=== PATIENT | female | born 1985 | race American Indian/Alaskan Native ===

== ENCOUNTER 2021-06-03 15:30 | Inpatient (IN) | payer OTHER, SELFPAY ==
[2021-06-03] MEDS ORDERED: SODIUM CHLORIDE 0.9% 1000 ML IV SOLN IV ONE (17:34)
[2021-06-03] MEDS ORDERED: VANCOMYCIN 1,250 MG in SODIUM CHLORIDE 0.9% 500 ML 500 ML IV ONE (17:38)
[2021-06-03] MEDS ORDERED: cefTRIAXone/NS 1 GM/50 ML 1 GM/50 ML BAG IV ONE (17:39)
--- NOTE | 2021-06-03 17:42 | Emergency Department Report ---
HPI - General Chief Complaint: Hyperglycemia Time Seen by Provider: 06/03/21 17:25 - HPI HPI: 35-year-old female with history of DM 2 who is currently on no medications because she is homeless presents complaining of hyperglycemia and pain in her right great toe for the past 2 weeks. Patient states that everything started with pain and swelling of her right great toe approximately 2 weeks ago. She went to the ER at [facility] on May 18 and was prescribed clindamycin for 1 week but she states that the pills were taken away from her and she has not taken them in the last week. She reports that she has had progressive swelling of her right foot and also with separate swelling of her right ankle which started about a week ago. She says other than the pain in her toe and swelling she has no other symptoms. According to the EMS report, the patient's blood glucose was 343. She denies any fever/chills, headache, vision change, abdominal pain, na usea/vomiting, cough, shortness of breath, chest pain, back pain, dysuria, focal weakness, sensory changes other than chronic foot and toe numbness and paresthesias, or any other complaints. ED Past Medical Hx - Past Medical History Previous Medical History?: Yes Hx Diabetes: Yes - Surgical History Past Surgical History?: No - Social History Smoking Status: Never Smoker Substance Use Type: None - Medications Home Medications: Home Medications Medication Instructions Recorded Confirmed Last Taken Type No Known Home Medications [No 06/04/21 06/04/21 Unknown History Reported Home Medications] ED Review of Systems ROS: Stated complaint: DIABETIC W/RT TOE INFECTION Other details as noted in HPI Constitutional: denies: chills, fever Eyes: denies: eye pain, vision change ENT: denies: throat pain, congestion Respiratory: denies: cough, shortness of breath Cardiovascular: denies: chest pain, palpitations Gastrointestinal: denies: abdominal pain, nausea, vomiting Genitourinary: denies: dysuria, frequency Musculoskeletal: other (Right great toe pain, Right foot, ankle, and calf pain). denies: back pain Skin: denies: rash Neurological: numbness (chronic (bilateral soles of feet)). denies: headache, weakness Physical Exam - Physical Exam Vital Signs: Vital Signs 06/03/21 16:16 Temperature 99.0 F Pulse Rate 96 H Respiratory 18 Rate Blood Pressure 129/89 [Right] O2 Sat by Pulse 100 Oximetry Physical Exam: GENERAL: Well developed and well nourished. No acute distress HEAD: Normocephalic. No obvious signs of trauma. ENT: Very dry mucous membranes. EYES: Extraocular movements are intact. Pupils are equal round and reactive to light bilaterally NECK: Supple. Full ROM is intact. Trachea is midline. LUNGS: Nonlabored breathing. Equal chest rise bilaterally. Clear to auscultation bilaterally. CARDIOVASCULAR: Regular rate and rhythm. No murmurs or rubs. VASCULAR: Cap refill < 2 seconds ABDOMEN: Abdomen is soft and nondistended. There is no significant tenderness, guarding or rebound. SKIN: Skin is warm and dry NEURO: Patient is awake, alert, and oriented. 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 No focal deficits. Normal motor and sensory exam throughout with the exception of the bilateral soles which have reduced sensation to light touch. Normal speech. MUSCULOSKELETAL: The great toe of the right foot is extremely swollen and fluctuant with visible fibrinous tissue which extends past the IP joint. There is extensive swelling of the right foot and the 4 other toes with mild overlying erythema. There is a 2+ DP pulse on the right and left. There is no tenderness on palpation of the malleolus or the base of the fifth metatarsal on the right. There is 2+ swelling of the right calf and no swelling on the left. The 4 other toes have normal range of motion. Range of motion of the great toe on the right is very limited. Range of motion at the right ankle is limited secondary to swelling. Otherwise there are no obvious deformities and no significant tenderness elsewhere. BACK/SPINE: No costovertebral angle tenderness. ED Course Vital Signs 06/03/21 16:16 Temperature 99.0 F Pulse Rate 96 H Respiratory 18 Rate Blood Pressure 129/89 [Right] O2 Sat by Pulse 100 Oximetry ED Medical Decision Making - Lab Data Result diagrams: 06/03/21 19:50 06/03/21 17:51 Lab Results 06/03/21 06/03/21 06/03/21 Range/Units 17:51 17:51 17:51 WBC (4.5-11.0) K/mm3 RBC (3.65-5.03) M/mm3 Hgb (10.1-14.3) gm/dl Hct (30.3-42.9) % MCV (79-97) fl MCH (28-32) pg MCHC (30-34) % RDW (13.2-15.2) % Plt Count (140-440) K/mm3 Add Manual Diff Total Counted Seg Neuts % (Manual) (40.0-70.0) % Lymphocytes % (Manual) (13.4-35.0) % Monocytes % (Manual) (0.0-7.3) % Eosinophils % (Manual) (0.0-4.3) % Basophils % (Manual) (0.0-1.8) % Nucleated RBC % Seg Neutrophils # Man (1.8-7.7) K/mm3 Band Neutrophils # K/mm3 Lymphocytes # (Manual) (1.2-5.4) K/mm3 Abs React Lymphs (Man) K/mm3 Monocytes # (Manual) (0.0-0.8) K/mm3 Eosinophils # (Manual) (0.0-0.4) K/mm3 Basophils # (Manual) (0.0-0.1) K/mm3 Metamyelocytes # K/mm3 Myelocytes # K/mm3 Promyelocytes # K/mm3 Blast Cells # K/mm3 WBC Morphology Hypersegmented Neuts Hyposegmented Neuts Hypogranular Neuts Smudge Cells Toxic Granulation Toxic Vacuolation Dohle Bodies Pelger-Huet Anomaly Viri Rods Platelet Estimate Clumped Platelets Plt Clumps, EDTA Large Platelets Giant Platelets Platelet Satelliting Plt Morphology Comment RBC Morphology Dimorphic RBCs Polychromasia Hypochromasia Poikilocytosis Anisocytosis Microcytosis Macrocytosis Spherocytes Pappenheimer Bodies Sickle Cells Target Cells Tear Drop Cells Ovalocytes Helmet Cells Luna-Adak Bodies Stewart Rings [place] Cells Bite Cells Crenated Cell Elliptocytes Acanthocytes (Spur) Rouleaux Hemoglobin C Crystals Schistocytes Malaria parasites Angel Bodies Hem Pathologist Commnt PT (12.2-14.9) Sec. INR (0.87-1.13) APTT (24.2-36.6) Sec. VBG pH (7.320-7.420) Sodium 132 L (137-145) mmol/L Potassium 4.4 (3.6-5.0) mmol/L Chloride 95.1 L (98-107) mmol/L Carbon Dioxide 23 (22-30) mmol/L Anion Gap 18 mmol/L BUN 8 (7-17) mg/dL Creatinine 0.6 (0.6-1.2) mg/dL Estimated GFR > 60 ml/min BUN/Creatinine Ratio 13 % Glucose 231 H (65-100) mg/dL POC Glucose (70-105) mg/dL Osmolality 294 Mosm/kg Lactic Acid 1.10 (0.7-2.0) mmol/L Calcium 9.8 (8.4-10.2) mg/dL Magnesium (1.7-2.3) mg/dL Total Bilirubin < 0.20 (0.1-1.2) mg/dL AST 12 (5-40) units/L ALT 9 (7-56) units/L Alkaline Phosphatase 118 (35-129) units/L Total Protein 8.1 (6.3-8.2) g/dL Albumin 3.8 L (3.9-5) g/dL Albumin/Globulin Ratio 0.9 % Lipase (13-60) units/L HCG, Qual (Negative) Urine Color (Yellow) Urine Turbidity (Clear) Urine pH (5.0-7.0) Ur Specific Davey (1.003-1.030) Urine Protein (Negative) mg/dL Urine Glucose (UA) (Negative) mg/dL Urine Ketones (Negative) mg/dL Urine Blood (Negative) Urine Nitrite (Negative) Urine Bilirubin (Negative) Urine Urobilinogen (<2.0) mg/dL Ur Leukocyte Esterase (Negative) Urine WBC (Auto) (0.0-6.0) /HPF Urine RBC (Auto) (0.0-6.0) /HPF U Epithel Cells (Auto) (0-13.0) /HPF 06/03/21 06/03/21 06/03/21 Range/Units 17:51 17:51 17:51 WBC (4.5-11.0) K/mm3 RBC (3.65-5.03) M/mm3 Hgb (10.1-14.3) gm/dl Hct (30.3-42.9) % MCV (79-97) fl MCH (28-32) pg MCHC (30-34) % RDW (13.2-15.2) % Plt Count (140-440) K/mm3 Add Manual Diff Total Counted Seg Neuts % (Manual) (40.0-70.0) % Lymphocytes % (Manual) (13.4-35.0) % Monocytes % (Manual) (0.0-7.3) % Eosinophils % (Manual) (0.0-4.3) % Basophils % (Manual) (0.0-1.8) % Nucleated RBC % Seg Neutrophils # Man (1.8-7.7) K/mm3 Band Neutrophils # K/mm3 Lymphocytes # (Manual) (1.2-5.4) K/mm3 Abs React Lymphs (Man) K/mm3 Monocytes # (Manual) (0.0-0.8) K/mm3 Eosinophils # (Manual) (0.0-0.4) K/mm3 Basophils # (Manual) (0.0-0.1) K/mm3 Metamyelocytes # K/mm3 Myelocytes # K/mm3 Promyelocytes # K/mm3 Blast Cells # K/mm3 WBC Morphology Hypersegmented Neuts Hyposegmented Neuts Hypogranular Neuts Smudge Cells Toxic Granulation Toxic Vacuolation Dohle Bodies Pelger-Huet Anomaly Viri Rods Platelet Estimate Clumped Platelets Plt Clumps, EDTA Large Platelets Giant Platelets Platelet Satelliting Plt Morphology Comment RBC Morphology Dimorphic RBCs Polychromasia Hypochromasia Poikilocytosis Anisocytosis Microcytosis Macrocytosis Spherocytes Pappenheimer Bodies Sickle Cells Target Cells Tear Drop Cells Ovalocytes Helmet Cells Luna-Adak Bodies Stewart Rings [place] Cells Bite Cells Crenated Cell Elliptocytes Acanthocytes (Spur) Rouleaux Hemoglobin C Crystals Schistocytes Malaria parasites Angel Bodies Hem Pathologist Commnt PT (12.2-14.9) Sec. INR (0.87-1.13) APTT (24.2-36.6) Sec. VBG pH 7.415 (7.320-7.420) Sodium (137-145) mmol/L Potassium (3.6-5.0) mmol/L Chloride (98-107) mmol/L Carbon Dioxide (22-30) mmol/L Anion Gap mmol/L BUN (7-17) mg/dL Creatinine (0.6-1.2) mg/dL Estimated GFR ml/min BUN/Creatinine Ratio % Glucose (65-100) mg/dL POC Glucose (70-105) mg/dL Osmolality Mosm/kg Lactic Acid (0.7-2.0) mmol/L Calcium (8.4-10.2) mg/dL Magnesium 2.00 (1.7-2.3) mg/dL Total Bilirubin (0.1-1.2) mg/dL AST (5-40) units/L ALT (7-56) units/L Alkaline Phosphatase (35-129) units/L Total Protein (6.3-8.2) g/dL Albumin (3.9-5) g/dL Albumin/Globulin Ratio % Lipase 17 (13-60) units/L HCG, Qual Negative (Negative) Urine Color (Yellow) Urine Turbidity (Clear) Urine pH (5.0-7.0) Ur Specific Davey (1.003-1.030) Urine Protein (Negative) mg/dL Urine Glucose (UA) (Negative) mg/dL Urine Ketones (Negative) mg/dL Urine Blood (Negative) Urine Nitrite (Negative) Urine Bilirubin (Negative) Urine Urobilinogen (<2.0) mg/dL Ur Leukocyte Esterase (Negative) Urine WBC (Auto) (0.0-6.0) /HPF Urine RBC (Auto) (0.0-6.0) /HPF U Epithel Cells (Auto) (0-13.0) /HPF 06/03/21 06/03/21 06/03/21 Range/Units 17:51 17:58 19:50 WBC 10.0 (4.5-11.0) K/mm3 RBC 3.45 L (3.65-5.03) M/mm3 Hgb 10.6 (10.1-14.3) gm/dl Hct 31.5 (30.3-42.9) % MCV 91 (79-97) fl MCH 31 (28-32) pg MCHC 34 (30-34) % RDW 15.7 H (13.2-15.2) % Plt Count 356 (140-440) K/mm3 Add Manual Diff Complete Total Counted 100 Seg Neuts % (Manual) 65.0 (40.0-70.0) % Lymphocytes % (Manual) 23.0 (13.4-35.0) % Monocytes % (Manual) 10.0 H (0.0-7.3) % Eosinophils % (Manual) 1.0 (0.0-4.3) % Basophils % (Manual) 1.0 (0.0-1.8) % Nucleated RBC % Not Reportable Seg Neutrophils # Man 6.5 (1.8-7.7) K/mm3 Band Neutrophils # 0.0 K/mm3 Lymphocytes # (Manual) 2.3 (1.2-5.4) K/mm3 Abs React Lymphs (Man) 0.0 K/mm3 Monocytes # (Manual) 1.0 H (0.0-0.8) K/mm3 Eosinophils # (Manual) 0.1 (0.0-0.4) K/mm3 Basophils # (Manual) 0.1 (0.0-0.1) K/mm3 Metamyelocytes # 0.0 K/mm3 Myelocytes # 0.0 K/mm3 Promyelocytes # 0.0 K/mm3 Blast Cells # 0.0 K/mm3 WBC Morphology Not Reportable Hypersegmented Neuts Not Reportable Hyposegmented Neuts Not Reportable Hypogranular Neuts Not Reportable Smudge Cells Not Reportable Toxic Granulation Not Reportable Toxic Vacuolation Not Reportable Dohle Bodies Not Reportable Pelger-Huet Anomaly Not Reportable Viri Rods Not Reportable Platelet Estimate Not Reportable Clumped Platelets Not Reportable Plt Clumps, EDTA Not Reportable Large Platelets Not Reportable Giant Platelets Not Reportable Platelet Satelliting Not Reportable Plt Morphology Comment Not Reportable RBC Morphology Not Reportable Dimorphic RBCs Not Reportable Polychromasia Not Reportable Hypochromasia Few Poikilocytosis Not Reportable Anisocytosis Rare Microcytosis Rare Macrocytosis Not Reportable Spherocytes Not Reportable Pappenheimer Bodies Not Reportable Sickle Cells Not Reportable Target Cells Not Reportable Tear Drop Cells Not Reportable Ovalocytes Not Reportable Helmet Cells Not Reportable Luna-Adak Bodies Not Reportable Stewart Rings Not Reportable [place] Cells Not Reportable Bite Cells Not Reportable Crenated Cell Not Reportable Elliptocytes Not Reportable Acanthocytes (Spur) Not Reportable Rouleaux Not Reportable Hemoglobin C Crystals Not Reportable Schistocytes Not Reportable Malaria parasites Not Reportable Angel Bodies Not Reportable Hem Pathologist Commnt No PT 13.6 (12.2-14.9) Sec. INR 0.98 (0.87-1.13) APTT 32.0 (24.2-36.6) Sec. VBG pH (7.320-7.420) Sodium (137-145) mmol/L Potassium (3.6-5.0) mmol/L Chloride (98-107) mmol/L Carbon Dioxide (22-30) mmol/L Anion Gap mmol/L BUN (7-17) mg/dL Creatinine (0.6-1.2) mg/dL Estimated GFR ml/min BUN/Creatinine Ratio % Glucose (65-100) mg/dL POC Glucose 206 H (70-105) mg/dL Osmolality Mosm/kg Lactic Acid (0.7-2.0) mmol/L Calcium (8.4-10.2) mg/dL Magnesium (1.7-2.3) mg/dL Total Bilirubin (0.1-1.2) mg/dL AST (5-40) units/L ALT (7-56) units/L Alkaline Phosphatase (35-129) units/L Total Protein (6.3-8.2) g/dL Albumin (3.9-5) g/dL Albumin/Globulin Ratio % Lipase (13-60) units/L HCG, Qual (Negative) Urine Color (Yellow) Urine Turbidity (Clear) Urine pH (5.0-7.0) Ur Specific Davey (1.003-1.030) Urine Protein (Negative) mg/dL Urine Glucose (UA) (Negative) mg/dL Urine Ketones (Negative) mg/dL Urine Blood (Negative) Urine Nitrite (Negative) Urine Bilirubin (Negative) Urine Urobilinogen (<2.0) mg/dL Ur Leukocyte Esterase (Negative) Urine WBC (Auto) (0.0-6.0) /HPF Urine RBC (Auto) (0.0-6.0) /HPF U Epithel Cells (Auto) (0-13.0) /HPF 06/03/ Range/Units 21:02 WBC (4.5-11.0) K/mm3 RBC (3.65-5.03) M/mm3 Hgb (10.1-14.3) gm/dl Hct (30.3-42.9) % MCV (79-97) fl MCH (28-32) pg MCHC (30-34) % RDW (13.2-15.2) % Plt Count (140-440) K/mm3 Add Manual Diff Total Counted Seg Neuts % (Manual) (40.0-70.0) % Lymphocytes % (Manual) (13.4-35.0) % Monocytes % (Manual) (0.0-7.3) % Eosinophils % (Manual) (0.0-4.3) % Basophils % (Manual) (0.0-1.8) % Nucleated RBC % Seg Neutrophils # Man (1.8-7.7) K/mm3 Band Neutrophils # K/mm3 Lymphocytes # (Manual) (1.2-5.4) K/mm3 Abs React Lymphs (Man) K/mm3 Monocytes # (Manual) (0.0-0.8) K/mm3 Eosinophils # (Manual) (0.0-0.4) K/mm3 Basophils # (Manual) (0.0-0.1) K/mm3 Metamyelocytes # K/mm3 Myelocytes # K/mm3 Promyelocytes # K/mm3 Blast Cells # K/mm3 WBC Morphology Hypersegmented Neuts Hyposegmented Neuts Hypogranular Neuts Smudge Cells Toxic Granulation Toxic Vacuolation Dohle Bodies Pelger-Huet Anomaly Viri Rods Platelet Estimate Clumped Platelets Plt Clumps, EDTA Large Platelets Giant Platelets Platelet Satelliting Plt Morphology Comment RBC Morphology Dimorphic RBCs Polychromasia Hypochromasia Poikilocytosis Anisocytosis Microcytosis Macrocytosis Spherocytes Pappenheimer Bodies Sickle Cells Target Cells Tear Drop Cells Ovalocytes Helmet Cells Luna-Adak Bodies Stewart Rings Nat Cells Bite Cells Crenated Cell Elliptocytes Acanthocytes (Spur) Rouleaux Hemoglobin C Crystals Schistocytes Malaria parasites Angel Bodies Hem Pathologist Commnt PT (12.2-14.9) Sec. INR (0.87-1.13) APTT (24.2-36.6) Sec. VBG pH (7.320-7.420) Sodium (137-145) mmol/L Potassium (3.6-5.0) mmol/L Chloride (98-107) mmol/L Carbon Dioxide (22-30) mmol/L Anion Gap mmol/L BUN (7-17) mg/dL Creatinine (0.6-1.2) mg/dL Estimated GFR ml/min BUN/Creatinine Ratio % Glucose (65-100) mg/dL POC Glucose (70-105) mg/dL Osmolality Mosm/kg Lactic Acid (0.7-2.0) mmol/L Calcium (8.4-10.2) mg/dL Magnesium (1.7-2.3) mg/dL Total Bilirubin (0.1-1.2) mg/dL AST (5-40) units/L ALT (7-56) units/L Alkaline Phosphatase (35-129) units/L Total Protein (6.3-8.2) g/dL Albumin (3.9-5) g/dL Albumin/Globulin Ratio % Lipase (13-60) units/L HCG, Qual (Negative) Urine Color Yellow (Yellow) Urine Turbidity Clear (Clear) Urine pH 6.0 (5.0-7.0) Ur Specific Davey 1.018 (1.003-1.030) Urine Protein 30 mg/dl (Negative) mg/dL Urine Glucose (UA) >=500 (Negative) mg/dL Urine Ketones Neg (Negative) mg/dL Urine Blood Mod (Negative) Urine Nitrite Neg (Negative) Urine Bilirubin Neg (Negative) Urine Urobilinogen < 2.0 (<2.0) mg/dL Ur Leukocyte Esterase Neg (Negative) Urine WBC (Auto) < 1.0 (0.0-6.0) /HPF Urine RBC (Auto) 6.0 (0.0-6.0) /HPF U Epithel Cells (Auto) < 1.0 (0-13.0) /HPF - Radiology Data CHEST 1 VIEW 06/03/2021 5:45 PM INDICATION / CLINICAL INFORMATION: sepsis. COMPARISON: None available. FINDINGS: SUPPORT DEVICES: None. HEART / MEDIASTINUM: No significant abnormality. LUNGS / PLEURA: No significant pulmonary abnormality. No significant pleural effusion. No pneumothorax. ADDITIONAL FINDINGS: No significant additional findings. IMPRESSION: 1. No acute abnormality of the chest. Signer Name: Rogelio Leroy MD Signed: 06/03/2021 5:05 PM Workstation Name: [id number] Right foot 3 views INDICATION: Gastric FINDINGS: There is bone irregularity within the distal tuft the great toe. Soft tissue gas with ulceration is seen. Findings concerning for infection both the soft tissue and possible early osteomyelitis. Right tibia and fibula 2 views INDICATION: Pain FINDINGS: Tibia and fibula are intact. No acute fracture. No acute findings. Signer Name: Sukhi Jaquan, MD Signed: 06/03/2021 5:07 PM Workstation Name: [id number] Right ankle 3 views INDICATION: Right ankle pain. IMPRESSION: No fracture or subluxation of the right ankle identified. Prominent swelling especially along the medial aspect of the ankle. No subcutaneous gas is appreciated. Signer Name: Jatinder Nolasco MD Signed: 06/03/2021 5:10 PM Workstation Name: [id number] DUPLEX DOPPLER LOWER EXTREMITY VEINS, RIGHT INDICATION / CLINICAL INFORMATION: swelling. TECHNIQUE: Duplex doppler imaging was performed through the veins of the right lower extremity using venous compression and other maneuvers. COMPARISON: None available. FINDINGS: RIGHT COMMON FEMORAL VEIN: Negative. RIG HT FEMORAL VEIN: Negative. RIGHT POPLITEAL VEIN: Negative. RIGHT CALF VEINS: Negative. ADDITIONAL FINDINGS: None. IMPRESSION: 1. No sonographic evidence for DVT in the right lower extremity. Signer Name: Sukhi Partida MD Signed: 06/03/2021 6:59 PM Workstation Name: [id number] - Medical Decision Making 35-year-old female with history of diabetes mellitus who has not been using any diabetes medications due to homelessness presents with a right great toe infection. Her fingerstick blood glucose for EMS was 343. The patient's right great toe is extremely swollen and fluctuant with fibrinous material present extending past the IP joint. There is extensive swelling of the right foot, ankle, and calf. There is a strong DP pulse. Unclear whether the patient's calf swelled up separate from the foot or whether it is an extension of infection from the foot. Patient has been noncompliant with prescribed clindamycin. On initial assessment, she has a low-grade temperature of 99.0. Her heart rate is in the 90s to 100s. She has very dry mucous membranes. Given suspicion for diabetic foot infection, I have activated and ordered the sepsis order set including labs and cultures. We will give 30 mL/kg of IV fluid and broad-spectrum IV vancomycin, Clindamycin, and ceftriaxone. Will obtain plain film x-rays of the right foot, ankle, and tib-fib to evaluate for gas or traumatic injuries. We will also obtain ultrasound of the right lower extremity to assess for evidence of DVT. We will plan to call surgery given the extent of the infection and likely need for OR debridement. X-ray of the foot shows findings concerning for soft tissue infection and early osteomyelitis. At 6:05 PM I spoke with Dr. Lal of general surgery regarding the case. She recommends a vascular surgery consult as an inpatient despite the fact that the patient has 2+ pedal pulses. She states that the patient should be made n.p.o. after midnight in case she is to be brought to the OR for debridement. Labs show no significant leukocytosis or anemia. There are no significant electrolyte abnormalities and kidney function is normal. Her glucose is elevated in the 200s. IV fluids given. Ultrasound shows no evidence of DVT. At 10:01 PM I spoke with Dr. Shankar the on-call hospitalist regarding the case and he accepts patient for admission and will assume care. Critical care attestation.: If time is entered above; I have spent that time in minutes in the direct care of this critically ill patient, excluding procedure time. ED Disposition Clinical Impression: Osteomyelitis of great toe of right foot, Diabetic foot infection Disposition: OP ADMIT IP TO THIS HOSP Is pt being admited?: Yes Condition: Stable
--- NOTE | 2021-06-03 18:10 | XRay Report ---
CHEST 1 VIEW 06/03/2021 5:45 PM INDICATION / CLINICAL INFORMATION: sepsis. COMPARISON: None available. FINDINGS: SUPPORT DEVICES: None. HEART / MEDIASTINUM: No significant abnormality. LUNGS / PLEURA: No significant pulmonary abnormality. No significant pleural effusion. No pneumothora x. ADDITIONAL FINDINGS: No significant additional findings. IMPRESSION: 1. No acute abnormality of the chest. Signer Name: Rogelio Leroy MD Signed: 06/03/2021 6:05 PM Workstation Name: [id number]
--- NOTE | 2021-06-03 18:12 | XRay Report ---
Right foot 3 views INDICATION: Gastric FINDINGS: There is bone irregularity within the distal tuft the great toe. Soft tissue gas with ulcer ation is seen. Findings concerning for infection both the soft tissue and possible early osteomyeliti s. Right tibia and fibula 2 views INDICATION: Pain FINDINGS: Tibia and fibula are intact. No acute fracture. No acute findings. Signer Name: Sukhi Partida MD Signed: 06/03/2021 6:07 PM Workstation Name: [id number]
--- NOTE | 2021-06-03 18:15 | XRay Report ---
Right ankle 3 views INDICATION: Right ankle pain. IMPRESSION: No fracture or subluxation of the right ankle identified. Prominent swelling especially a long the medial aspect of the ankle. No subcutaneous gas is appreciated. Signer Name: Jatinder Nolasco MD Signed: 06/03/2021 6:10 PM Workstation Name: [id number]
[2021-06-03 18:16] LABS: INR 0.98 (0.87-1.13)
[2021-06-03] MEDS ORDERED: VANCOMYCIN 1,500 MG in SODIUM CHLORIDE 0.9% 500 ML 500 ML IV ONE (18:30)
[2021-06-03 20:01] LABS: Hematocrit 31.5 % (30.3-42.9); Hemoglobin 10.6 gm/dl (10.1-14.3); Mean Corpuscular HGB Conc 34 % (30-34); Mean Corpuscular Volume 91 fl (79-97); Platelet Count 356 K/mm3 (140-440); Red Blood Count 3.45 M/mm3 (3.65-5.03); Red Cell Distribution Width 15.7 % (13.2-15.2)
--- NOTE | 2021-06-03 20:03 | Vascular Lab Report ---
DUPLEX DOPPLER LOWER EXTREMITY VEINS, RIGHT INDICATION / CLINICAL INFORMATION: swelling. TECHNIQUE: Duplex doppler imaging was performed through the veins of the right lower extremity using venous comp ression and other maneuvers. COMPARISON: None available. FINDINGS: RIGHT COMMON FEMORAL VEIN: Negative. RIGHT FEMORAL VEIN: Negative. RIGHT POPLITEAL VEIN: Negative. RIGHT CALF VEINS: Negative. ADDITIONAL FINDINGS: None. IMPRESSION: 1. No sonographic evidence for DVT in the right lower extremity. Signer Name: Sukhi Partida MD Signed: 06/03/2021 7:59 PM Workstation Name: [id number]
[2021-06-03] MEDS ORDERED: ACETAMINOPHEN 500 MG TAB PO ONE (20:20)
[2021-06-03 20:26] LABS: Alanine Aminotransferase 9 units/L (7-56); Albumin 3.8 g/dL (3.9-5); Blood Urea Nitrogen 8 mg/dL (7-17); Calcium 9.8 mg/dL (8.4-10.2); Hemolysis Index 14
[2021-06-03 20:30] LABS: BUN/Creatinine Ratio 13
[2021-06-03 21:09] LABS: Anisocytosis RARE; Hypochromasia Few; Total Cells Counted 100
[2021-06-03 21:35] LABS: Bilirubin,Urine NEG (Negative); Blood,Urine MOD (Negative); Color,Urine Yellow (Yellow); Urobilinogen,Urine < 2.0 mg/dL (<2.0); WBC,Urine < 1.0 /HPF (0.0-6.0)
[2021-06-03] MEDS ORDERED: MAGNESIUM HYDROXIDE (MOM) ORAL LIQD UDC PO PRN (22:59)
[2021-06-03] MEDS ORDERED: ACETAMINOPHEN 325 MG TAB PO PRN (22:59)
[2021-06-03] MEDS ORDERED: ONDANSETRON 4 MG/2 ML INJ IV PRN (22:59)
[2021-06-03] MEDS ORDERED: DEXTROSE 50% IN WATER (25GM) 50 ML SYRINGE IV PRN (22:59)
--- NOTE | 2021-06-03 23:07 | History and Physical Report ---
History of Present Illness Date of examination: 06/03/21 Date of admission: 06/03/21 22:10 Chief complaint: Pain in right great toe for 2 weeks History of present illness: 35-year-old -[place] female with known history of diabetes mellitus who is currently homeless and has not been on any medication presenting to the emergency room today complaining of hyperglycemia and pain in the right great toe which has been ongoing for the past 2 weeks. Patient was seen at emergency room in [place] on May 18 and was prescribed some clindamycin for 1 week however patient has not been able to take the antibiotics because she claims it was taken away from her. She has been having progressive swelling and pain in the right foot up to the ankle. She denies any fever or chills, no cough, no chest pain or shortness of breath, no nausea vomiting, no abdominal pain, no hematuria or dysuria. She denies any polydipsia polyuria or increased thirst. According to EMS patient's blood glucose was about 343. Work-up in the emergency room today, chemistry reveals sodium of 132, blood glucose was 231. X-ray of the right great toe shows bony irregularity within the distal tuft of the great toe. Soft tissue gas with ulceration is also seen. Findings were concerning for infection of the soft tissue and possible early osteomyelitis. Patient is being admitted with hyperglycemia and diabetic foot ulcer with possible osteomyelitis. Past History Past Medical History: diabetes Past Surgical History: No surgical history Social history: other (Currently homeless) Family history: no significant family history Medications and Allergies Allergies Allergy/AdvReac Type Severity Reaction Status Date / Time No Known Allergies Allergy Unverified 06/03/21 15:53 Home Medications Medication Instructions Recorded Confirmed Last Taken Type No Known Home Medications [No 06/04/21 06/04/21 Unknown History Reported Home Medications] Active Meds: Active Medications Acetaminophen (Acetaminophen 325 Mg Tab) 650 mg PO Q4H PRN PRN Reason: Pain MILD(1-3)/Fever >100.5/OBRIEN Dextrose (Dextrose 50% In Water (25gm) 50 Ml Syringe) 50 ml IV Q30MIN PRN; Protocol PRN Reason: Hypoglycemia Sodium Chloride (Nacl 0.9% 1000 Ml) 1,000 mls @ 125 mls/hr IV DIRECT SHERRY Insulin Human Lispro (Insulin Lispro 100 Unit/Ml) 0 unit SUB-Q ACHS SHERRY; Protocol Magnesium Hydroxide (Magnesium Hydroxide (Mom) Oral Liqd Udc) 30 ml PO Q4H PRN PRN Reason: Constipation Morphine Sulfate (Morphine 4 Mg/1 Ml Inj) 4 mg IV Q4H PRN PRN Reason: Pain , Severe (7-10) Morphine Sulfate (Morphine 2 Mg/1 Ml Inj) 2 mg IV Q4H PRN PRN Reason: Pain, Moderate (4-6) Ondansetron HCl (Ondansetron 4 Mg/2 Ml Inj) 4 mg IV Q8H PRN PRN Reason: Nausea And Vomiting Sodium Chloride (Sodium Chloride 0.9% 10 Ml Flush Syringe) 10 ml IV BID SHERRY Sodium Chloride (Sodium Chloride 0.9% 10 Ml Flush Syringe) 10 ml IV PRN PRN PRN Reason: LINE FLUSH Review of Systems Constitutional: no fever, no chills Ears, nose, mouth and throat: no nasal congestion, no sore throat Cardiovascular: no chest pain, no palpitations Respiratory: no cough, no shortness of breath Gastrointestinal: no abdominal pain, no nausea, no vomiting, no diarrhea Genitourinary Female: no flank pain, no dysuria, no hematuria Musculoskeletal: no neck pain, no low back pain Integumentary: no rash, no pruritis Neurological: no headaches, no confusion Psychiatric: no anxiety, no depression Endocrine: no polyphagia, no polydipsia, no polyuria, no nocturia Exam - Constitutional Vitals: Temp Pulse Resp BP Pulse Ox 99.9 F H 96 H 16 144/94 100 06/03/21 20:01 06/03/21 20:01 06/03/21 20:48 06/03/21 20:01 06/03/21 20:01 General appearance: Present: no acute distress, well-nourished - EENT Eyes: Present: PERRL, EOM intact. Absent: scleral icterus ENT: hearing intact, clear oral mucosa, dentition normal - Neck Neck: Present: supple, normal ROM - Respiratory Respiratory effort: normal Respiratory: bilateral: CTA - Cardiovascular Rhythm: regular Heart Sounds: Present: S1 & S2. Absent: gallop, systolic murmur, diastolic murmur, rub, click - Extremities Extremities: no ischemia, pulses intact, pulses symmetrical, normal temperature, normal color, Full ROM Extremity abnormal: edema (Dustin right ankle edema), ulceration (Open ulcer on the right great toe, tender to touch, no obvious drainage), tenderness (Tenderness around right great toe) Peripheral Pulses: within normal limits - Abdominal General gastrointestinal: Present: soft, non-tender, non-distended, normal bowel sounds. Absent: mass - Integumentary Integumentary: Present: clear, warm, dry, normal turgor. Absent: rash - Musculoskeletal Musculoskeletal: strength equal bilaterally - Psychiatric Psychiatric: appropriate mood/affect, intact judgment & insight, memory intact, cooperative - Neurologic Neurologic: CNII-XII intact, no focal deficits, moves all extremities Results - Labs CBC & Chem 7: 06/04/21 07:07 06/04/21 07:07 Labs: Abnormal lab results 06/03/21 06/03/21 06/03/21 Range/Units 17:51 17:58 19:50 RBC 3.45 L (3.65-5.03) M/mm3 RDW 15.7 H (13.2-15.2) % Monocytes % (Manual) 10.0 H (0.0-7.3) % Monocytes # (Manual) 1.0 H (0.0-0.8) K/mm3 Sodium 132 L (137-145) mmol/L Chloride 95.1 L (98-107) mmol/L Glucose 231 H (65-100) mg/dL POC Glucose 206 H (70-105) mg/dL Albumin 3.8 L (3.9-5) g/dL Assessment and Plan - Patient Problems (1) Diabetic foot infection Current Visit: Yes Status: Acute Plan to address problem: Radiological exam shows possible osteomyelitis. She has been placed on empiric IV antibiotics. We requested infectious disease evaluation and recommendation. Consult placed to surgery for evaluation. (2) Diabetes mellitus Current Visit: Yes Status: Acute Plan to address problem: Will monitor accucheks closely (3) DVT prophylaxis Current Visit: Yes Status: Acute Plan to address problem: Patient placed on sequential compression device (4) Full code status Current Visit: Yes Status: Acute Plan to address problem: Patient is full code.
[2021-06-03] MEDS ORDERED: VANCOMYCIN PHARMACY TO DOSE IV SCH (23:45)
[2021-06-04] MEDS: PIPERACIL/TAZOBACTA 4.5/NS 100 4.5 GM/100 ML VIAL IV SCH ×3 (01:01→16:47)
[2021-06-04] MEDS: SODIUM CHLORIDE 0.9% 1000 ML 1,000 ML IV SCH ×2 (01:03→14:27)
[2021-06-04] MEDS: MORPHINE 4 MG/1 ML INJ IV PRN ×3 (01:50→21:31)
[2021-06-04] MEDS: VANCOMYCIN 1,250 MG in SODIUM CHLORIDE 0.9% 250ML 250 ML IV SCH ×2 (05:56→17:07)
[2021-06-04 08:09] LABS: Basophils % (Auto) 0.4 % (0.0-1.8); Eosinophils # (Auto) 0.1 K/mm3 (0.0-0.4); Eosinophils % (Auto) 1.2 % (0.0-4.3); Hematocrit 28.7 % (30.3-42.9); Hemoglobin 9.7 gm/dl (10.1-14.3); Lymphocytes # (Auto) 2.1 K/mm3 (1.2-5.4); Lymphocytes % (Auto) 28.5 % (13.4-35.0); Mean Corpuscular HGB Conc 34 % (30-34); Mean Corpuscular Volume 92 fl (79-97); Monocytes # (Auto) 0.7 K/mm3 (0.0-0.8); Monocytes % (Auto) 9.6 % (0.0-7.3); Platelet Count 343 K/mm3 (140-440); Red Blood Count 3.12 M/mm3 (3.65-5.03); Red Cell Distribution Width 15.4 % (13.2-15.2)
[2021-06-04 08:21] LABS: INR 1.07 (0.87-1.13)
[2021-06-04 08:31] LABS: Blood Urea Nitrogen 5 mg/dL (7-17); Calcium 8.9 mg/dL (8.4-10.2); Hemolysis Index 3
[2021-06-04 08:39] LABS: BUN/Creatinine Ratio 13
[2021-06-04] MEDS: INSULIN LISPRO 100 UNIT/ML SUB-Q SCH ×3 (09:44→17:40)
--- NOTE | 2021-06-04 11:14 | Progress Note ---
Assessment and Plan Assessment and plan: 35-year-old -[place] female with known history of diabetes mellitus who is currently homeless and has not been on any medication presenting to the emergency room today complaining of hyperglycemia and pain in the right great toe which has been ongoing for the past 2 weeks. Patient was seen at emergency room in [place] on May 18 and was prescribed some clindamycin for 1 week however patient has not been able to take the antibiotics because she claims it was taken away from her. She has been having progressive swelling and pain in the right foot up to the ankle. She denies any fever or chills, no cough, no chest pain or shortness of breath, no nausea vomiting, no abdominal pain, no hematuria or dysuria. She denies any polydipsia polyuria or increased thirst. According to EMS patient's blood glucose was about 343. Work-up in the emergency room today, chemistry reveals sodium of 132, blood glucose was 231. X-ray of the right great toe shows bony irregularity within the distal tuft of the great toe. Soft tissue gas with ulceration is also seen. Findings were concerning for infection of the soft tissue and possible early osteomyelitis. Patient is being admitted with hyperglycemia and diabetic foot ulcer with possible osteomyelitis. 06/04: Discussed with surgeon at bedside mild I&D done at bedside. Appears to be able to palpate the bone. Considering patient's homelessness condition and consideration of clinical osteomyelitis recommendation for possible to amputation is done will await vascular evaluation. Continue current antibiotic coverage Case management/social psychologist to assist with social issues in respect to discharge planning. (1) Diabetic foot infection-right Current Visit: Yes Status: Acute Plan to address problem: Radiological exam shows possible osteomyelitis. She has been placed on empiric IV antibiotics. We requested infectious disease evaluation and recommendation. Consult placed to surgery for evaluation. (2) Diabetes mellitus with hyperglycemia Current Visit: Yes Status: Acute (3) mild anemia (4) DVT prophylaxis Current Visit: Yes Status: Acute (5) Full code status Current Visit: Yes Status: Acute History Interval history: Patient seen and examined ambulating around with IV pole. Per nursing staff still requiring pain medication. No fever recorded. Hospitalist Physical - Physical exam Narrative exam: VITAL SIGNS: Reviewed. GENERAL: The patient appears normally developed, appears older than stated age vital signs as documented. HEAD: No signs of head trauma. EYES: Pupils are equal. Extraocular motions intact. EARS: Hearing grossly intact. MOUTH: Oropharynx is normal. NECK: No adenopathy, no JVD. CHEST: Chest with clear breath sounds bilaterally. No wheezes, rales, or r honchi. CARDIAC: Regular rate and rhythm. S1 and S2, without murmurs, gallops, or rubs. VASCULAR: No Edema. Peripheral pulses normal and equal in all extremities. ABDOMEN: Soft, non tender and non distended. No rebound or guarding, and no masses palpated. Bowel Sounds normal. MUSCULOSKELETAL: Good range of motion of all major joints. Extremities without clubbing, cyanosis with mild edema to the foot. NEUROLOGIC EXAM: Alert and oriented x 3 No focal sensory or strength deficits. Speech normal. Follows commands. PSYCHIATRIC: Mood normal. SKIN: Dressing over the right foot area and large toe. Detail exam as documented in skin assessment - Constitutional Vitals: Temp Pulse Resp BP Pulse Ox 98.4 F 87 20 134/81 98 06/04/21 00:47 06/04/21 00:47 06/04/21 04:50 06/04/21 00:47 06/04/21 00:47 General appearance: Present: no acute distress, well-nourished Results - Labs CBC & Chem 7: 06/04/21 07:07 06/04/21 07:07 Labs: Laboratory Last Values WBC 7.4 K/mm3 (4.5-11.0) 06/04/21 07:07 RBC 3.12 M/mm3 (3.65-5.03) L 06/04/21 07:07 Hgb 9.7 gm/dl (10.1-14.3) L 06/04/21 07:07 Hct 28.7 % (30.3-42.9) L 06/04/21 07:07 MCV 92 fl (79-97) 06/04/21 07:07 MCH 31 pg (28-32) 06/04/21 07:07 MCHC 34 % (30-34) 06/04/21 07:07 RDW 15.4 % (13.2-15.2) H 06/04/21 07:07 Plt Count 343 K/mm3 (140-440) 06/04/21 07:07 Lymph % (Auto) 28.5 % (13.4-35.0) 06/04/21 07:07 [place] % (Auto) 9.6 % (0.0-7.3) H 06/04/21 07:07 Eos % (Auto) 1.2 % (0.0-4.3) 06/04/21 07:07 Baso % (Auto) 0.4 % (0.0-1.8) 06/04/21 07:07 Lymph # (Auto) 2.1 K/mm3 (1.2-5.4) 06/04/21 07:07 [place] # (Auto) 0.7 K/mm3 (0.0-0.8) 06/04/21 07:07 Eos # (Auto) 0.1 K/mm3 (0.0-0.4) 06/04/21 07:07 Baso # (Auto) 0.0 K/mm3 (0.0-0.1) 06/04/21 07:07 Add Manual Diff Complete 06/03/21 19:50 Total Counted 100 06/03/21 19:50 Seg Neutrophils % 60.3 % (40.0-70.0) 06/04/21 07:07 Seg Neuts % (Manual) 65.0 % (40.0-70.0) 06/03/21 19:50 Lymphocytes % (Manual) 23.0 % (13.4-35.0) 06/03/21 19:50 Monocytes % (Manual) 10.0 % (0.0-7.3) H 06/03/21 19:50 Eosinophils % (Manual) 1.0 % (0.0-4.3) 06/03/21 19:50 Basophils % (Manual) 1.0 % (0.0-1.8) 06/03/21 19:50 Nucleated RBC % Not Reportable 06/03/21 19:50 Seg Neutrophils # 4.5 K/mm3 (1.8-7.7) 06/04/21 07:07 Seg Neutrophils # Man 6.5 K/mm3 (1.8-7.7) 06/03/21 19:50 Band Neutrophils # 0.0 K/mm3 06/03/21 19:50 Lymphocytes # (Manual) 2.3 K/mm3 (1.2-5.4) 06/03/21 19:50 Abs React Lymphs (Man) 0.0 K/mm3 06/03/21 19:50 Monocytes # (Manual) 1.0 K/mm3 (0.0-0.8) H 06/03/21 19:50 Eosinophils # (Manual) 0.1 K/mm3 (0.0-0.4) 06/03/21 19:50 Basophils # (Manual) 0.1 K/mm3 (0.0-0.1) 06/03/21 19:50 Metamyelocytes # 0.0 K/mm3 06/03/21 19:50 Myelocytes # 0.0 K/mm3 06/03/21 19:50 Promyelocytes # 0.0 K/mm3 06/03/21 19:50 Blast Cells # 0.0 K/mm3 06/03/21 19:50 WBC Morphology Not Reportable 06/03/21 19:50 Hypersegmented Neuts Not Reportable 06/03/21 19:50 Hyposegmented Neuts Not Reportable 06/03/21 19:50 Hypogranular Neuts Not Reportable 06/03/21 19:50 Smudge Cells Not Reportable 06/03/21 19:50 Toxic Granulation Not Reportable 06/03/21 19:50 Toxic Vacuolation Not Reportable 06/03/21 19:50 Dohle Bodies Not Reportable 06/03/21 19:50 Pelger-Huet Anomaly Not Reportable 06/03/21 19:50 Viri Rods Not Reportable 06/03/21 19:50 Platelet Estimate Not Reportable 06/03/21 19:50 Clumped Platelets Not Reportable 06/03/21 19:50 Plt Clumps, EDTA Not Reportable 06/03/21 19:50 Large Platelets Not Reportable 06/03/21 19:50 Giant Platelets Not Reportable 06/03/21 19:50 Platelet Satelliting Not Reportable 06/03/21 19:50 Plt Morphology Comment Not Reportable 06/03/21 19:50 RBC Morphology Not Reportable 06/03/21 19:50 Dimorphic RBCs Not Reportable 06/03/21 19:50 Polychromasia Not Reportable 06/03/21 19:50 Hypochromasia Few 06/03/21 19:50 Poikilocytosis Not Reportable 06/03/21 19:50 Anisocytosis Rare 06/03/21 19:50 Microcytosis Rare 06/03/21 19:50 Macrocytosis Not Reportable 06/03/21 19:50 Spherocytes Not Reportable 06/03/21 19:50 Pappenheimer Bodies Not Reportable 06/03/21 19:50 Sickle Cells Not Reportable 06/03/21 19:50 Target Cells Not Reportable 06/03/21 19:50 Tear Drop Cells Not Reportable 06/03/21 19:50 Ovalocytes Not Reportable 06/03/21 19:50 Helmet Cells Not Reportable 06/03/21 19:50 [place] Bodies Not Reportable 06/03/21 19:50 [place] Rings Not Reportable 06/03/21 19:50 Nat Cells Not Reportable 06/03/21 19:50 Bite Cells Not Reportable 06/03/21 19:50 Crenated Cell Not Reportable 06/03/21 19:50 Elliptocytes Not Reportable 06/03/21 19:50 Acanthocytes (Spur) Not Reportable 06/03/21 19:50 Rouleaux Not Reportable 06/03/21 19:50 Hemoglobin C Crystals Not Reportable 06/03/21 19:50 Schistocytes Not Reportable 06/03/21 19:50 Malaria parasites Not Reportable 06/03/21 19:50 Angel Bodies Not Reportable 06/03/21 19:50 Hem Pathologist Commnt No 06/03/21 19:50 PT 14.5 Sec. (12.2-14.9) 06/04/21 07:07 INR 1.07 (0.87-1.13) 06/04/21 07:07 APTT 32.0 Sec. (24.2-36.6) 06/03/21 17:51 VBG pH 7.415 (7.320-7.420) 06/03/21 17:51 Sodium 136 mmol/L (137-145) L 06/04/21 07:07 Potassium 3.9 mmol/L (3.6-5.0) 06/04/21 07:07 Chloride 100.7 mmol/L (98-107) 06/04/21 07:07 Carbon Dioxide 26 mmol/L (22-30) 06/04/21 07:07 Anion Gap 13 mmol/L 06/04/21 07:07 BUN 5 mg/dL (7-17) L 06/04/21 07:07 Creatinine 0.4 mg/dL (0.6-1.2) L 06/04/21 07:07 Estimated GFR > 60 ml/min 06/04/21 07:07 BUN/Creatinine Ratio 13 % 06/04/21 07:07 Glucose 136 mg/dL (65-100) H 06/04/21 07:07 POC Glucose 153 mg/dL (70-105) H 06/04/21 08:57 Osmolality 294 Mosm/kg 06/03/21 17:51 Lactic Acid 1.10 mmol/L (0.7-2.0) 06/03/21 17:51 Calcium 8.9 mg/dL (8.4-10.2) 06/04/21 07:07 Magnesium 2.00 mg/dL (1.7-2.3) 06/03/21 17:51 Total Bilirubin < 0.20 mg/dL (0.1-1.2) 06/03/21 17:51 AST 12 units/L (5-40) 06/03/21 17:51 ALT 9 units/L (7-56) 06/03/21 17:51 Alkaline Phosphatase 118 units/L (35-129) 06/03/21 17:51 Total Protein 8.1 g/dL (6.3-8.2) 06/03/21 17:51 Albumin 3.8 g/dL (3.9-5) L 06/03/21 17:51 Albumin/Globulin Ratio 0.9 % 06/03/21 17:51 Lipase 17 units/L (13-60) 06/03/21 17:51 HCG, Qual Negative (Negative) 06/03/21 17:51 Urine Color Yellow (Yellow) 06/03/21 21:02 Urine Turbidity Clear (Clear) 06/03/21 21:02 Urine pH 6.0 (5.0-7.0) 06/03/21 21:02 Ur Specific [place] 1.018 (1.003-1.030) 06/03/21 21:02 Urine Protein 30 mg/dl mg/dL (Negative) 06/03/21 21:02 Urine Glucose (UA) >=500 mg/dL (Negative) 06/03/21 21:02 Urine Ketones Neg mg/dL (Negative) 06/03/21 21:02 Urine Blood Mod (Negative) 06/03/21 21:02 Urine Nitrite Neg (Negative) 06/03/21 21:02 Urine Bilirubin Neg (Negative) 06/03/21 21:02 Urine Urobilinogen < 2.0 mg/dL (<2.0) 06/03/21 21:02 Ur Leukocyte Esterase Neg (Negative) 06/03/21 21:02 Urine WBC (Auto) < 1.0 /HPF (0.0-6.0) 06/03/21 21:02 Urine RBC (Auto) 6.0 /HPF (0.0-6.0) 06/03/21 21:02 U Epithel Cells (Auto) < 1.0 /HPF (0-13.0) 06/03/21 21:02 Microbiology: Microbiology 06/03/21 17:51 Peripheral/Venous Blood Culture - Preliminary Culture in Progress 06/03/21 17:51 Peripheral/Venous Blood Culture - Preliminary Culture in Progress Matos/IV: Voiding Method Toilet Active Medications - Current Medications Current Medications: Generic Name Dose Route Start Last Admin Trade Name Freq PRN Reason Stop Dose Admin Acetaminophen 650 mg 06/03/21 22:59 Acetaminophen 325 Mg Tab PO Q4H PRN Pain MILD(1-3)/Fever >100.5/OBRIEN Dextrose 0 ml 06/03/21 22:59 Dextrose 50% In Water (25gm) 50 Ml Syringe IV Q30MIN PRN Hypoglycemia Protocol Sodium Chloride 1,000 mls @ 125 mls/hr 06/03/21 23:00 06/04/21 01:03 Nacl 0.9% 1000 Ml IV 125 mls/hr DIRECT SHERRY Administration Piperacillin Sod/Tazobactam Sod 4.5 gm in 100 mls @ 200 mls/hr 06/04/21 00:00 06/04/21 09:43 Zosyn/Ns 4.5gm/100ml IV 200 mls/hr Q8H SHERRY Administration Protocol Vancomycin HCl 1,250 mg/ 275 mls @ 166.667 mls/hr 06/04/21 06:00 06/04/21 05:56 Sodium Chloride IV 166.667 mls/hr Q12H SHERRY Administration Insulin Human Lispro 0 unit 06/04/21 07:30 06/04/21 09:44 Insulin Lispro 100 Unit/Ml SUB-Q Not Given ACHS SHERRY Protocol Magnesium Hydroxide 30 ml 06/03/21 22:59 Magnesium Hydroxide (Mom) Oral Liqd Udc PO Q4H PRN Constipation Morphine Sulfate 4 mg 06/03/21 22:59 06/04/21 04:20 Morphine 4 Mg/1 Ml Inj IV 4 mg Q4H PRN Administration Pain , Severe (7-10) Morphine Sulfate 2 mg 06/03/21 22:59 Morphine 2 Mg/1 Ml Inj IV Q4H PRN Pain, Moderate (4-6) Ondansetron HCl 4 mg 06/03/21 22:59 Ondansetron 4 Mg/2 Ml Inj IV Q8H PRN Nausea And Vomiting Sodium Chloride 10 ml 06/04/21 10:00 06/04/21 09:44 Sodium Chloride 0.9% 10 Ml Flush Syringe IV 10 ml BID SHERRY Administration Sodium Chloride 10 ml 06/03/21 22:59 Sodium Chloride 0.9% 10 Ml Flush Syringe IV PRN PRN LINE FLUSH
[2021-06-04] MEDS ORDERED: LIDOCAINE (1%) 10 MG/1 ML VIAL 20 ML MDV INFILTRATI ONE (12:04)
--- NOTE | 2021-06-04 12:06 | Consultation ---
History of Present Illness Consult date: 06/04/21 Chief complaint: toe wound - History of present illness History of present illness: 35-year-old female with poorly controlled diabetes mellitus, currently not compliant with medication who presented to the emergency room with complaints of pain in her right great toe with purulent discharge. Patient states she noticed this 2 weeks ago and it has slowly worsened over time. She now has pain in her foot and ankle as well with swelling. She states that this is happened to her once in the past with the right second toe which resulted in a partial amputation. She states that she is currently homeless and unable to attend any doctors visits or be compliant with her medications. T-max 99.9. No nausea or vomiting. Past History Past Medical History: diabetes Past Surgical History: Other (Partial amputation of right second toe) Social history: other (Currently homeless) Family history: no significant family history Medications and Allergies Allergies Allergy/AdvReac Type Severity Reaction Status Date / Time No Known Allergies Allergy Unverified 06/03/21 15:53 Home Medications Medication Instructions Recorded Confirmed Last Taken Type No Known Home Medications [No 06/04/21 06/04/21 Unknown History Reported Home Medications] Active Meds: Active Medications Acetaminophen (Acetaminophen 325 Mg Tab) 650 mg PO Q4H PRN PRN Reason: Pain MILD(1-3)/Fever >100.5/OBRIEN Dextrose (Dextrose 50% In Water (25gm) 50 Ml Syringe) 0 ml IV Q30MIN PRN; Protocol PRN Reason: Hypoglycemia Sodium Chloride (Nacl 0.9% 1000 Ml) 1,000 mls @ 125 mls/hr IV DIRECT SHERRY Last Admin: 06/04/21 01:03 Dose: 125 mls/hr Documented by: Piperacillin Sod/Tazobactam Sod (Zosyn/Ns 4.5gm/100ml) 4.5 gm in 100 mls @ 200 mls/hr IV Q8H SHERRY; Protocol Last Admin: 06/04/21 09:43 Dose: 200 mls/hr Documented by: Vancomycin HCl 1,250 mg/ (Sodium Chloride) 275 mls @ 166.667 mls/hr IV Q12H SHERRY Last Admin: 06/04/21 05:56 Dose: 166.667 mls/hr Documented by: Insulin Human Lispro (Insulin Lispro 100 Unit/Ml) 0 unit SUB-Q ACHS SHERRY; Protocol Last Admin: 06/04/21 09:44 Dose: Not Given Documented by: Lidocaine (Lidocaine (1%) 10 Mg/1 Ml Vial 20 Ml Mdv) 20 ml INFILTRATI ONCE ONE Stop: 06/04/21 12:05 Magnesium Hydroxide (Magnesium Hydroxide (Mom) Oral Liqd Udc) 30 ml PO Q4H PRN PRN Reason: Constipation Morphine Sulfate (Morphine 4 Mg/1 Ml Inj) 4 mg IV Q4H PRN PRN Reason: Pain , Severe (7-10) Last Admin: 06/04/21 04:20 Dose: 4 mg Documented by: Morphine Sulfate (Morphine 2 Mg/1 Ml Inj) 2 mg IV Q4H PRN PRN Reason: Pain, Moderate (4-6) Morphine Sulfate (Morphine 2 Mg/1 Ml Inj) 2 mg IV ONCE ONE Stop: 06/04/21 12:05 Ondansetron HCl (Ondansetron 4 Mg/2 Ml Inj) 4 mg IV Q8H PRN PRN Reason: Nausea And Vomiting Sodium Chloride (Sodium Chloride 0.9% 10 Ml Flush Syringe) 10 ml IV BID SHERRY Last Admin: 06/04/21 09:44 Dose: 10 ml Documented by: Sodium Chloride (Sodium Chloride 0.9% 10 Ml Flush Syringe) 10 ml IV PRN PRN PRN Reason: LINE FLUSH Review of Systems All systems: negative (10 point ROS performed and negative except for that lis dionisio in HPI) Exam Vital Signs Temp Pulse Resp BP Pulse Ox 99.0 F 96 H 18 129/89 100 06/03/21 16:16 06/03/21 16:16 06/03/21 16:16 06/03/21 16:16 06/03/21 16:16 Narrative exam: Gen.: Awake, alert, oriented x3. No apparent distress ENT: Trachea midline. No lymphadenopathy. No scleral icterus or conjunctival pallor CV: S1, S2 present Respiratory: No audible wheezes Abdomen: Soft, nondistended, nontender. No rebound, rigidity, guarding Extremities: 2+ edema of right foot and ankle. There is warmth on palpation and tenderness. There is a foul-smelling wound of the right great toe with a pinpoint opening. Scant purulent fluid can be expressed. There is also overlying callus. There is evidence of a previous partial amputation of the right second toe. There is a palpable DP and PT pulse. The left lower extremity is unremarkable. Results - Labs 06/04/21 07:07 06/04/21 07:07 Abnormal lab results 06/03/21 06/03/21 06/03/21 Range/Units 17:51 17:58 19:50 RBC 3.45 L (3.65-5.03) M/mm3 Hgb (10.1-14.3) gm/dl Hct (30.3-42.9) % RDW 15.7 H (13.2-15.2) % [place] % (Auto) (0.0-7.3) % Monocytes % (Manual) 10.0 H (0.0-7.3) % Monocytes # (Manual) 1.0 H (0.0-0.8) K/mm3 Sodium 132 L (137-145) mmol/L Chloride 95.1 L (98-107) mmol/L BUN (7-17) mg/dL Creatinine (0.6-1.2) mg/dL Glucose 231 H (65-100) mg/dL POC Glucose 206 H (70-105) mg/dL Albumin 3.8 L (3.9-5) g/dL 06/04/21 06/04/21 06/04/21 Range/Units 07:07 07:07 08:57 RBC 3.12 L (3.65-5.03) M/mm3 Hgb 9.7 L (10.1-14.3) gm/dl Hct 28.7 L (30.3-42.9) % RDW 15.4 H (13.2-15.2) % [place] % (Auto) 9.6 H (0.0-7.3) % Monocytes % (Manual) (0.0-7.3) % Monocytes # (Manual) (0.0-0.8) K/mm3 Sodium 136 L (137-145) mmol/L Chloride (98-107) mmol/L BUN 5 L (7-17) mg/dL Creatinine 0.4 L (0.6-1.2) mg/dL Glucose 136 H (65-100) mg/dL POC Glucose 153 H (70-105) mg/dL Albumin (3.9-5) g/dL Diabetes panel 06/03/21 06/04/21 Range/Units 17:51 07:07 Sodium 132 L 136 L (137-145) mmol/L Potassium 4.4 3.9 (3.6-5.0) mmol/L Chloride 95.1 L 100.7 (98-107) mmol/L Carbon Dioxide 23 26 (22-30) mmol/L BUN 8 5 L (7-17) mg/dL Creatinine 0.6 0.4 L (0.6-1.2) mg/dL Glucose 231 H 136 H (65-100) mg/dL Calcium 9.8 8.9 (8.4-10.2) mg/dL AST 12 (5-40) units/L ALT 9 (7-56) units/L Alkaline Phosphatase 118 (35-129) units/L Total Protein 8.1 (6.3-8.2) g/dL Albumin 3.8 L (3.9-5) g/dL Calcium panel 06/03/21 06/04/21 Range/Units 17:51 07:07 Calcium 9.8 8.9 (8.4-10.2) mg/dL Albumin 3.8 L (3.9-5) g/dL Pituitary panel 06/03/21 06/04/21 Range/Units 17:51 07:07 Sodium 132 L 136 L (137-145) mmol/L Potassium 4.4 3.9 (3.6-5.0) mmol/L Chloride 95.1 L 100.7 (98-107) mmol/L Carbon Dioxide 23 26 (22-30) mmol/L BUN 8 5 L (7-17) mg/dL Creatinine 0.6 0.4 L (0.6-1.2) mg/dL Glucose 231 H 136 H (65-100) mg/dL Calcium 9.8 8.9 (8.4-10.2) mg/dL Adrenal panel 06/03/21 06/04/21 Range/Units 17:51 07:07 Sodium 132 L 136 L (137-145) mmol/L Potassium 4.4 3.9 (3.6-5.0) mmol/L Chloride 95.1 L 100.7 (98-107) mmol/L Carbon Dioxide 23 26 (22-30) mmol/L BUN 8 5 L (7-17) mg/dL Creatinine 0.6 0.4 L (0.6-1.2) mg/dL Glucose 231 H 136 H (65-100) mg/dL Calcium 9.8 8.9 (8.4-10.2) mg/dL Total Bilirubin < 0.20 (0.1-1.2) mg/dL AST 12 (5-40) units/L ALT 9 (7-56) units/L Alkaline Phosphatase 118 (35-129) units/L Total Protein 8.1 (6.3-8.2) g/dL Albumin 3.8 L (3.9-5) g/dL - Imaging Additional studies: X-ray right foot, tib/fib Assessment and Plan 35-year-old female with 1. Right great toe abscess 2. Osteomyelitis 3. Poorly controlled diabetes Plan: 1. Recommend incision and drainage of right great toe abscess with debridement of wound. Consent obtained from patient 2. Wound cultures will be obtained 3. Continue antibiotics per primary team 4. Obtain hemoglobin A1c 5. Daily wound care as per orders 6. Strict glucose control 7. Offloading 8. Discussed treatment options with the patient. Explained that with osteomyelitis and diabetic foot wound, the patient will require aggressive wound care, long-term IV antibiotics, compliance with her medications, and the ability to attend doctors visits. Another option would be to consider amputation of the toe. Patient states she is unable to reliably take her medications or attend doctors visits. She would like to proceed with evaluation for amputation. Vascular surgery already consulted - will defer amputation vascular. Thank you for this consultation. Please call with any questions or concerns. Evaluation and treatment of this patient was during the time of the national and state emergency arising from COVID19 coronavirus pandemic. Treatment and procedures performed meet the current and available best practice and guidelines for patient during the COVID pandemic.
[2021-06-04] MEDS ORDERED: MORPHINE 2 MG/1 ML INJ IV ONE (12:20)
--- NOTE | 2021-06-04 13:01 | Procedure Note ---
Date of procedure: 06/04/21 Pre-op diagnosis: right great toe abscess, wound Post-op diagnosis: same Procedure: incision, drainage of right great toe abscess and excisional debridement of wound Findings: Consent verified on chart. RN present for entire procedure. Right toe prepped with Betadine. Time out performed. Local anesthetic infiltrated to skin at the intended incision site. An incision was made over the area of fluctuance on the plantar aspect of the great toe. This revealed a underlying wound with necrotic subcutaneous tissue. The necrotic tissue was debrided using a forcep, scissors, 11 blade. Scant purulent fluid was expressed. Wound cultures were obtained. The wound was probed and bone was palpable. The wound measured approximately 2 cm x 2 cm x 1 cm. The surrounding callus was also debrided using forceps and scissors. The periwound tissue exhibits signs of deep tissue injury. The wound was checked for hemostasis which was carefully ensured. The wound was cleansed and packed with 1 piece of Mesalt packing. This was covered with 4 x 4 gauze and wrapped with Kerlix. Patient tolerated the procedure well. All sharps were disposed of appropriately. Anesthesia: local Surgeon: NESSA GUERRERO Estimated blood loss: minimal Pathology: list (wound cultures) Specimen disposition: to lab Condition: stable Disposition: no change
--- NOTE | 2021-06-04 13:27 | Consultation ---
History of Present Illness - Reason for Consult Consult date: 06/04/21 Diabetic foot infection/ osteomyelitis Requesting physician: OMER PEOPLES - History of Present Illness 35-year-old female with history of diabetes mellitus, homelessness, admitted on 06/03/2021 secondary to right great toe pain for 2 weeks associated with progressive swelling to the left foot and ankle. Patient also noted increased glucose. Patient was seen initially at [place] emergency room was given clindamycin. On arrival, temperature 99, O2 sat 96, RR 18, BP 129/89. Initial WBC 10. Glucose 231. Urinalysis negative. Blood cultures pending. Chest x- ray negative. X-ray of the right great toe shows bony irregularity within the distal tuft of the great toe. Soft tissue gas with ulceration is also seen. Findings were concerning for infection of the soft tissue and possible early osteomyelitis. Review of Systems: positive in bold print General: fever, chills, malaise Cutaneous: rash, pruritus Head: headaches or injury Eyes: changes in vision, eye pain, double vision Ears: ear pain, ear discharge, ringing or hearing loss Nose: nose bleeding, stuffiness Mouth & throat: bleeding gums, horseness, no dental problems, or swollen glands Neck: no pain, node enlargement/lumps, tyroid enlargement or tenderness Respiratory: SOB, cough, LOPEZ, wheezing, sputum, hemoptysis, pleuritic chest pain Cardiovascular: chest pain, leg edema, cyanosis, LOPEZ, orthopnea Musculoskeletal: + Left great toe edema, tenderness Gastrointestinal: nausea, vomiting, hematemesis, diarrhea, constipation, melena, bright red blood in stools, fecal incontinence, jaundice Genitourinary/Reproductive: frequent urination, dysuria, hematuria, incontinence Neurogical: seizures, headaches, weakness, paresthesias, loss of speech or vision; memory loss, vertigo, tremors, numbness Psychiatric: stable mood; excessive anxiety, sadness or moodiness Past History Past Medical History: diabetes Past Surgical History: Other (Partial amputation of right second toe) Social history: other (Currently homeless) Family history: no significant family history Medications and Allergies Allergies Allergy/AdvReac Type Severity Reaction Status Date / Time No Known Allergies Allergy Unverified 06/03/21 15:53 Home Medications Medication Instructions Recorded Confirmed Last Taken Type No Known Home Medications [No 06/04/21 06/04/21 Unknown History Reported Home Medications] Active Meds: Active Medications Acetaminophen (Acetaminophen 325 Mg Tab) 650 mg PO Q4H PRN PRN Reason: Pain MILD(1-3)/Fever >100.5/OBRIEN Dextrose (Dextrose 50% In Water (25gm) 50 Ml Syringe) 0 ml IV Q30MIN PRN; Protocol PRN Reason: Hypoglycemia Sodium Chloride (Nacl 0.9% 1000 Ml) 1,000 mls @ 125 mls/hr IV DIRECT SHERRY Last Admin: 06/04/21 01:03 Dose: 125 mls/hr Documented by: Piperacillin Sod/Tazobactam Sod (Zosyn/Ns 4.5gm/100ml) 4.5 gm in 100 mls @ 200 mls/hr IV Q8H SHERRY; Protocol Last Admin: 06/04/21 09:43 Dose: 200 mls/hr Documented by: Vancomycin HCl 1,250 mg/ (Sodium Chloride) 275 mls @ 166.667 mls/hr IV Q12H [facility] Last Admin: 06/04/21 05:56 Dose: 166.667 mls/hr Documented by: Insulin Human Lispro (Insulin Lispro 100 Unit/Ml) 0 unit SUB-Q ACHS SHERRY; Protocol Last Admin: 06/04/21 12:30 Dose: 3 unit Documented by: Magnesium Hydroxide (Magnesium Hydroxide (Mom) Oral Liqd Udc) 30 ml PO Q4H PRN PRN Reason: Constipation Morphine Sulfate (Morphine 4 Mg/1 Ml Inj) 4 mg IV Q4H PRN PRN Reason: Pain , Severe (7-10) Last Admin: 06/04/21 04:20 Dose: 4 mg Documented by: Morphine Sulfate (Morphine 2 Mg/1 Ml Inj) 2 mg IV Q4H PRN PRN Reason: Pain, Moderate (4-6) Ondansetron HCl (Ondansetron 4 Mg/2 Ml Inj) 4 mg IV Q8H PRN PRN Reason: Nausea And Vomiting Sodium Chloride (Sodium Chloride 0.9% 10 Ml Flush Syringe) 10 ml IV BID [facility] Last Admin: 06/04/21 09:44 Dose: 10 ml Documented by: Sodium Chloride (Sodium Chloride 0.9% 10 Ml Flush Syringe) 10 ml IV PRN PRN PRN Reason: LINE FLUSH Physical Examination - Physical Exam Narrative exam: General appearance: Alert in NAD pleasant Eyes: anicteric sclerae, moist conjunctivae; no lid-lag; PERRLA HENT: Normocephalic, Atraumatic; normal external ears, nares open, oropharynx clear with moist mucous membranes and no oral thrush; normal hard and soft pa late. Neck: supple, tracheal midline, no JVD Lungs: CTA, with normal respiratory effort and no intercostal retractions CV: RRR no murmur Abdomen: Soft, non-tender; no masses or hepatosplenomegaly Extremities: Left great toe extensive edema, skin sloughing and edema Skin: No rash. Psych: no agitated Neuro: alert and oriented x 3. Moving all extermities - Constitutional Vitals: Vital Signs Temp Pulse Resp BP Pulse Ox 98.4 F 87 20 134/81 100 06/04/21 00:47 06/04/21 00:47 06/04/21 10:00 06/04/21 00:47 06/04/21 10:00 Temperature -Last 24 Hours Temperature 98.4 F Temperature 99.9 F Temperature 99.0 F Results - Labs CBC & Chem 7: 06/04/21 07:07 06/04/21 07:07 Labs: Abnormal lab results 06/03/21 06/03/21 06/03/21 Range/Units 17:51 17:58 19:50 RBC 3.45 L (3.65-5.03) M/mm3 Hgb (10.1-14.3) gm/dl Hct (30.3-42.9) % RDW 15.7 H (13.2-15.2) % [place] % (Auto) (0.0-7.3) % Monocytes % (Manual) 10.0 H (0.0-7.3) % Monocytes # (Manual) 1.0 H (0.0-0.8) K/mm3 Sodium 132 L (137-145) mmol/L Chloride 95.1 L (98-107) mmol/L BUN (7-17) mg/dL Creatinine (0.6-1.2) mg/dL Glucose 231 H (65-100) mg/dL POC Glucose 206 H (70-105) mg/dL Albumin 3.8 L (3.9-5) g/dL 06/04/21 06/04/21 06/04/21 Range/Units 07:07 07:07 08:57 RBC 3.12 L (3.65-5.03) M/mm3 Hgb 9.7 L (10.1-14.3) gm/dl Hct 28.7 L (30.3-42.9) % RDW 15.4 H (13.2-15.2) % [place] % (Auto) 9.6 H (0.0-7.3) % Monocytes % (Manual) (0.0-7.3) % Monocytes # (Manual) (0.0-0.8) K/mm3 Sodium 136 L (137-145) mmol/L Chloride (98-107) mmol/L BUN 5 L (7-17) mg/dL Creatinine 0.4 L (0.6-1.2) mg/dL Glucose 136 H (65-100) mg/dL POC Glucose 153 H (70-105) mg/dL Albumin (3.9-5) g/dL 06/04/21 Range/Units 11:58 RBC (3.65-5.03) M/mm3 Hgb (10.1-14.3) gm/dl Hct (30.3-42.9) % RDW (13.2-15.2) % [place] % (Auto) (0.0-7.3) % Monocytes % (Manual) (0.0-7.3) % Monocytes # (Manual) (0.0-0.8) K/mm3 Sodium (137-145) mmol/L Chloride (98-107) mmol/L BUN (7-17) mg/dL Creatinine (0.6-1.2) mg/dL Glucose (65-100) mg/dL POC Glucose 239 H (70-105) mg/dL Albumin (3.9-5) g/dL Assessment and Plan Cultures: Blood culture pending Assessment: 35-year-old female with history of diabetes mellitus, homelessness, admitted on 06/03/2021 secondary to right great toe pain for 2 weeks associated with progressive swelling to the left foot and ankle: #Left great toe abscess and osteomyelitis: Underwent bedside I&D. #Diabetes mellitus: Uncontrolled. Recommendations: Follow blood culture Follow wound cultures Stop Zosyn Start cefepime Continue vancomycin with PK consult IV with vascular evaluation for possible amputation Obtain arterial Dopplers Will follow. Miriam Degroot Carpio, MD Infectious Diseases [employer] [facility] M [phone] O [phone]
[2021-06-04] MEDS: MORPHINE 2 MG/1 ML INJ IV PRN (16:46)
--- NOTE | 2021-06-04 20:28 | Consultation ---
History of Present Illness - Reason for Consult Consult date: 06/04/21 Right First Toe Diabetic Ulcer Requesting physician: TORRIE SIMMONS - History of Present Illness The patient is a 35-year-old female with a history of poorly controlled diabetes who presented to the emergency department with a complaint of right first toe drainage. She states that approximately 1 month ago she developed an ulceration on the plantar surface of her foot and second toe and was able to heal that wound with dressing changes. She then began to notice drainage in her sock, approximately 2 weeks ago, and noticed that she had an ulceration on her right first toe. She went to [place] emergency department and was given clindamycin and discharged. She states that despite antibiotics she had worsening pain and was unable to ambulate secondary to the pain. That prompted her to present to [facility] emergency department for care. She states she is homeless and has difficulty managing her diabetes and wounds. She has significant diabetic neuropathy but denies any history of claudication. She has no additional complaints at this time. Past History Past Medical History: diabetes Past Surgical History: Other (Partial amputation of right second toe) Social history: other (Currently homeless) Family history: no significant family history Medications and Allergies Allergies Allergy/AdvReac Type Severity Reaction Status Date / Time No Known Allergies Allergy Unverified 06/03/21 15:53 Home Medications Medication Instructions Recorded Confirmed Last Taken Type No Known Home Medications [No 06/04/21 06/04/21 Unknown History Reported Home Medications] Active Meds: Active Medications Acetaminophen (Acetaminophen 325 Mg Tab) 650 mg PO Q4H PRN PRN Reason: Pain MILD(1-3)/Fever >100.5/OBRIEN Dextrose (Dextrose 50% In Water (25gm) 50 Ml Syringe) 0 ml IV Q30MIN PRN; Protocol PRN Reason: Hypoglycemia Sodium Chloride (Nacl 0.9% 1000 Ml) 1,000 mls @ 125 mls/hr IV DIRECT SHERRY Last Admin: 06/04/21 14:27 Dose: 125 mls/hr Documented by: Piperacillin Sod/Tazobactam Sod (Zosyn/Ns 4.5gm/100ml) 4.5 gm in 100 mls @ 200 mls/hr IV Q8H SHERRY; Protocol Last Admin: 06/04/21 16:47 Dose: 200 mls/hr Documented by: Vancomycin HCl 1,250 mg/ (Sodium Chloride) 275 mls @ 166.667 mls/hr IV Q12H [facility] Last Admin: 06/04/21 17:07 Dose: 166.667 mls/hr Documented by: Insulin Human Lispro (Insulin Lispro 100 Unit/Ml) 0 unit SUB-Q ACHS [facility]; Protocol Last Admin: 06/04/21 17:40 Dose: 3 unit Documented by: Magnesium Hydroxide (Magnesium Hydroxide (Mom) Oral Liqd Udc) 30 ml PO Q4H PRN PRN Reason: Constipation Morphine Sulfate (Morphine 4 Mg/1 Ml Inj) 4 mg IV Q4H PRN PRN Reason: Pain , Severe (7-10) Last Admin: 06/04/21 04:20 Dose: 4 mg Documented by: Morphine Sulfate (Morphine 2 Mg/1 Ml Inj) 2 mg IV Q4H PRN PRN Reason: Pain, Moderate (4-6) Last Admin: 06/04/21 16:46 Dose: 2 mg Documented by: Ondansetron HCl (Ondansetron 4 Mg/2 Ml Inj) 4 mg IV Q8H PRN PRN Reason: Nausea And Vomiting Sodium Chloride (Sodium Chloride 0.9% 10 Ml Flush Syringe) 10 ml IV BID [facility] Last Admin: 06/04/21 09:44 Dose: 10 ml Documented by: Sodium Chloride (Sodium Chloride 0.9% 10 Ml Flush Syringe) 10 ml IV PRN PRN PRN Reason: LINE FLUSH Exam - Constitutional Vitals: Temp Pulse Resp BP Pulse Ox 98.9 F 93 H 16 123/80 99 06/04/21 17:11 06/04/21 17:11 06/04/21 17:11 06/04/21 17:11 06/04/21 17:11 General appearance: Present: no acute distress - Respiratory Respiratory effort: normal - Cardiovascular Rhythm: regular - Extremities Extremities: pulses symmetrical (Palpable pedal pulses bilaterally), abnormal (Ulceration on the plantar surface of the right first toe with foul-smelling drainage, ulceration involves the distal phalanx, thickening of the skin involving the entire right first toe) - Abdominal General gastrointestinal: Present: soft Female genitourinary: Present: deferred - Rectal Rectal Exam: deferred Results - Labs CBC & Chem 7: 06/04/21 07:07 06/04/21 07:07 Labs: Abnormal lab results 06/03/21 06/03/21 06/04/21 Range/Units 17:51 19:50 07:07 RBC 3.12 L (3.65-5.03) M/mm3 Hgb 9.7 L (10.1-14.3) gm/dl Hct 28.7 L (30.3-42.9) % RDW 15.4 H (13.2-15.2) % [place] % (Auto) 9.6 H (0.0-7.3) % Monocytes % (Manual) 10.0 H (0.0-7.3) % Monocytes # (Manual) 1.0 H (0.0-0.8) K/mm3 Sodium 132 L (137-145) mmol/L Chloride 95.1 L (98-107) mmol/L BUN (7-17) mg/dL Creatinine (0.6-1.2) mg/dL Glucose 231 H (65-100) mg/dL POC Glucose (70-105) mg/dL Albumin 3.8 L (3.9-5) g/dL 06/04/21 06/04/21 06/04/21 Range/Units 07:07 08:57 11:58 RBC (3.65-5.03) M/mm3 Hgb (10.1-14.3) gm/dl Hct (30.3-42.9) % RDW (13.2-15.2) % [place] % (Auto) (0.0-7.3) % Monocytes % (Manual) (0.0-7.3) % Monocytes # (Manual) (0.0-0.8) K/mm3 Sodium 136 L (137-145) mmol/L Chloride (98-107) mmol/L BUN 5 L (7-17) mg/dL Creatinine 0.4 L (0.6-1.2) mg/dL Glucose 136 H (65-100) mg/dL POC Glucose 153 H 239 H (70-105) mg/dL Albumin (3.9-5) g/dL 06/04/21 Range/Units 17:28 RBC (3.65-5.03) M/mm3 Hgb (10.1-14.3) gm/dl Hct (30.3-42.9) % RDW (13.2-15.2) % [place] % (Auto) (0.0-7.3) % Monocytes % (Manual) (0.0-7.3) % Monocytes # (Manual) (0.0-0.8) K/mm3 Sodium (137-145) mmol/L Chloride (98-107) mmol/L BUN (7-17) mg/dL Creatinine (0.6-1.2) mg/dL Glucose (65-100) mg/dL POC Glucose 217 H (70-105) mg/dL Albumin (3.9-5) g/dL Assessment and Plan The patient is a 35-year-old female with a history of poorly controlled diabetes and a right first toe ulcer with likely osteomyelitis of the distal phalanx. The patient has adequate blood flow to heal amputations and will not require any vascular intervention. She will require a right first toe amputation. We will plan for amputation of the right first toe on Sunday, as this is the earliest availability. I have discussed this with the patient who has expressed understanding and wishes to proceed.
[2021-06-05] MEDS: INSULIN LISPRO 100 UNIT/ML SUB-Q SCH ×5 (01:23→23:12)
[2021-06-05] MEDS: CEFEPIME/NS 2 GM/100 ML 2 GM/100 ML BAG IV SCH ×3 (01:24→15:34)
[2021-06-05] MEDS: MORPHINE 2 MG/1 ML INJ IV PRN ×4 (01:24→23:45)
[2021-06-05] MEDS: VANCOMYCIN 1,250 MG in SODIUM CHLORIDE 0.9% 250ML 250 ML IV SCH ×2 (05:16→18:38)
[2021-06-05] MEDS: MORPHINE 4 MG/1 ML INJ IV PRN (05:25)
[2021-06-05 08:05] LABS: Hematocrit 27.4 % (30.3-42.9); Hemoglobin 9.3 gm/dl (10.1-14.3); Mean Corpuscular HGB Conc 34 % (30-34); Mean Corpuscular Volume 93 fl (79-97); Platelet Count 357 K/mm3 (140-440); Red Blood Count 2.96 M/mm3 (3.65-5.03); Red Cell Distribution Width 15.1 % (13.2-15.2)
--- NOTE | 2021-06-05 12:47 | Progress Note ---
Assessment and Plan Assessment and plan: 35-year-old -[place] female with known history of diabetes mellitus who is currently homeless and has not been on any medication presenting to the emergency room today complaining of hyperglycemia and pain in the right great toe which has been ongoing for the past 2 weeks. Patient was seen at emergency room in [place] on May 18 and was prescribed some clindamycin for 1 week however patient has not been able to take the antibiotics because she claims it was taken away from her. She has been having progressive swelling and pain in the right foot up to the ankle. She denies any fever or chills, no cough, no chest pain or shortness of breath, no nausea vomiting, no abdominal pain, no hematuria or dysuria. She denies any polydipsia polyuria or increased thirst. According to EMS patient's blood glucose was about 343. Work-up in the emergency room today, chemistry reveals sodium of 132, blood glucose was 231. X-ray of the right great toe shows bony irregularity within the distal tuft of the great toe. Soft tissue gas with ulceration is also seen. Findings were concerning for infection of the soft tissue and possible early osteomyelitis. Patient is being admitted with hyperglycemia and diabetic foot ulcer with possible osteomyelitis. 06/04: Discussed with surgeon at bedside mild I&D done at bedside. Appears to be able to palpate the bone. Considering patient's homelessness condition and consideration of clinical osteomyelitis recommendation for possible to amputation is done will await vascular evaluation. Continue current antibiotic coverage Case management/manager social work to assist with social issues in respect to discharge planning. 06/05: Vascular input noted planning for amputation on Sunday. We will continue to adjust pain medication and control. (1) Diabetic foot infection-right Current Visit: Yes Status: Acute Plan to address problem: Radiological exam shows possible osteomyelitis. She has been placed on empiric IV antibiotics. We requested infectious disease evaluation and recommendation. Consult placed to surgery for evaluation. (2) Diabetes mellitus with hyperglycemia Current Visit: Yes Status: Acute (3) mild anemia (4) DVT prophylaxis Current Visit: Yes Status: Acute (5) Full code status Current Visit: Yes Status: Acute History Interval history: Patient seen and examined complains of cramping leg pain 7/10 in intensity otherwise no other issues no fever overnight Hospitalist Physical - Physical exam Narrative exam: VITAL SIGNS: Reviewed. GENERAL: The patient appears normally developed, appears older than stated age vital signs as documented. HEAD: No signs of head trauma. EYES: Pupils are equal. Extraocular motions intact. EARS: Hearing grossly intact. MOUTH: Oropharynx is normal. NECK: No adenopathy, no JVD. CHEST: Chest with clear breath sounds bilaterally. No wheezes, rales, or rhonchi. CARDIAC: Regular rate and rhythm. S1 and S2, without murmurs, gallops, or ru bs. VASCULAR: No Edema. Peripheral pulses normal and equal in all extremities. ABDOMEN: Soft, non tender and non distended. No rebound or guarding, and no masses palpated. Bowel Sounds normal. MUSCULOSKELETAL: Good range of motion of all major joints. Extremities without clubbing, cyanosis dressing over the foot and toe. NEUROLOGIC EXAM: Alert and oriented x 3 No focal sensory or strength deficits. Speech normal. Follows commands. PSYCHIATRIC: Mood normal. SKIN: Dressing over the right foot area and large toe. Detail exam as documented in skin assessment - Constitutional Vitals: Temp Pulse Resp BP Pulse Ox 98.0 F 95 H 18 108/66 97 06/05/21 03:30 06/05/21 03:30 06/05/21 10:00 06/05/21 03:30 06/05/21 10:00 General appearance: Present: no acute distress, well-nourished Results - Labs CBC & Chem 7: 06/05/21 07:23 06/04/21 07:07 Labs: Laboratory Last Values WBC 8.2 K/mm3 (4.5-11.0) 06/05/21 07:23 RBC 2.96 M/mm3 (3.65-5.03) L 06/05/21 07:23 Hgb 9.3 gm/dl (10.1-14.3) L 06/05/21 07:23 Hct 27.4 % (30.3-42.9) L 06/05/21 07:23 MCV 93 fl (79-97) 06/05/21 07:23 MCH 31 pg (28-32) 06/05/21 07:23 MCHC 34 % (30-34) 06/05/21 07:23 RDW 15.1 % (13.2-15.2) 06/05/21 07:23 Plt Count 357 K/mm3 (140-440) 06/05/21 07:23 Lymph % (Auto) 28.5 % (13.4-35.0) 06/04/21 07:07 [place] % (Auto) 9.6 % (0.0-7.3) H 06/04/21 07:07 Eos % (Auto) 1.2 % (0.0-4.3) 06/04/21 07:07 Baso % (Auto) 0.4 % (0.0-1.8) 06/04/21 07:07 Lymph # (Auto) 2.1 K/mm3 (1.2-5.4) 06/04/21 07:07 [place] # (Auto) 0.7 K/mm3 (0.0-0.8) 06/04/21 07:07 Eos # (Auto) 0.1 K/mm3 (0.0-0.4) 06/04/21 07:07 Baso # (Auto) 0.0 K/mm3 (0.0-0.1) 06/04/21 07:07 Add Manual Diff Complete 06/03/21 19:50 Total Counted 100 06/03/21 19:50 Seg Neutrophils % 60.3 % (40.0-70.0) 06/04/21 07:07 Seg Neuts % (Manual) 65.0 % (40.0-70.0) 06/03/21 19:50 Lymphocytes % (Manual) 23.0 % (13.4-35.0) 06/03/21 19:50 Monocytes % (Manual) 10.0 % (0.0-7.3) H 06/03/21 19:50 Eosinophils % (Manual) 1.0 % (0.0-4.3) 06/03/21 19:50 Basophils % (Manual) 1.0 % (0.0-1.8) 06/03/21 19:50 Nucleated RBC % Not Reportable 06/03/21 19:50 Seg Neutrophils # 4.5 K/mm3 (1.8-7.7) 06/04/21 07:07 Seg Neutrophils # Man 6.5 K/mm3 (1.8-7.7) 06/03/21 19:50 Band Neutrophils # 0.0 K/mm3 06/03/21 19:50 Lymphocytes # (Manual) 2.3 K/mm3 (1.2-5.4) 06/03/21 19:50 Abs React Lymphs (Man) 0.0 K/mm3 06/03/21 19:50 Monocytes # (Manual) 1.0 K/mm3 (0.0-0.8) H 06/03/21 19:50 Eosinophils # (Manual) 0.1 K/mm3 (0.0-0.4) 06/03/21 19:50 Basophils # (Manual) 0.1 K/mm3 (0.0-0.1) 06/03/21 19:50 Metamyelocytes # 0.0 K/mm3 06/03/21 19:50 Myelocytes # 0.0 K/mm3 06/03/21 19:50 Promyelocytes # 0.0 K/mm3 06/03/21 19:50 Blast Cells # 0.0 K/mm3 06/03/21 19:50 WBC Morphology Not Reportable 06/03/21 19:50 Hypersegmented Neuts Not Reportable 06/03/21 19:50 Hyposegmented Neuts Not Reportable 06/03/21 19:50 Hypogranular Neuts Not Reportable 06/03/21 19:50 Smudge Cells Not Reportable 06/03/21 19:50 Toxic Granulation Not Reportable 06/03/21 19:50 Toxic Vacuolation Not Reportable 06/03/21 19:50 Dohle Bodies Not Reportable 06/03/21 19:50 Pelger-Huet Anomaly Not Reportable 06/03/21 19:50 Viri Rods Not Reportable 06/03/21 19:50 Platelet Estimate Not Reportable 06/03/21 19:50 Clumped Platelets Not Reportable 06/03/21 19:50 Plt Clumps, EDTA Not Reportable 06/03/21 19:50 Large Platelets Not Reportable 06/03/21 19:50 Giant Platelets Not Reportable 06/03/21 19:50 Platelet Satelliting Not Reportable 06/03/21 19:50 Plt Morphology Comment Not Reportable 06/03/21 19:50 RBC Morphology Not Reportable 06/03/21 19:50 Dimorphic RBCs Not Reportable 06/03/21 19:50 Polychromasia Not Reportable 06/03/21 19:50 Hypochromasia Few 06/03/21 19:50 Poikilocytosis Not Reportable 06/03/21 19:50 Anisocytosis Rare 06/03/21 19:50 Microcytosis Rare 06/03/21 19:50 Macrocytosis Not Reportable 06/03/21 19:50 Spherocytes Not Reportable 06/03/21 19:50 Pappenheimer Bodies Not Reportable 06/03/21 19:50 Sickle Cells Not Reportable 06/03/21 19:50 Target Cells Not Reportable 06/03/21 19:50 Tear Drop Cells Not Reportable 06/03/21 19:50 Ovalocytes Not Reportable 06/03/21 19:50 Helmet Cells Not Reportable 06/03/21 19:50 [place] Bodies Not Reportable 06/03/21 19:50 [place] Rings Not Reportable 06/03/21 19:50 [place] Cells Not Reportable 06/03/21 19:50 Bite Cells Not Reportable 06/03/21 19:50 Crenated Cell Not Reportable 06/03/21 19:50 Elliptocytes Not Reportable 06/03/21 19:50 Acanthocytes (Spur) Not Reportable 06/03/21 19:50 Rouleaux Not Reportable 06/03/21 19:50 Hemoglobin C Crystals Not Reportable 06/03/21 19:50 Schistocytes Not Reportable 06/03/21 19:50 Malaria parasites Not Reportable 06/03/21 19:50 Angel Bodies Not Reportable 06/03/21 19:50 Hem Pathologist Commnt No 06/03/21 19:50 PT 14.5 Sec. (12.2-14.9) 06/04/21 07:07 INR 1.07 (0.87-1.13) 06/04/21 07:07 APTT 32.0 Sec. (24.2-36.6) 06/03/21 17:51 VBG pH 7.415 (7.320-7.420) 06/03/21 17:51 Sodium 136 mmol/L (137-145) L 06/04/21 07:07 Potassium 3.9 mmol/L (3.6-5.0) 06/04/21 07:07 Chloride 100.7 mmol/L (98-107) 06/04/21 07:07 Carbon Dioxide 26 mmol/L (22-30) 06/04/21 07:07 Anion Gap 13 mmol/L 06/04/21 07:07 BUN 5 mg/dL (7-17) L 06/04/21 07:07 Creatinine 0.4 mg/dL (0.6-1.2) L 06/04/21 07:07 Estimated GFR > 60 ml/min 06/04/21 07:07 BUN/Creatinine Ratio 13 % 06/04/21 07:07 Glucose 136 mg/dL (65-100) H 06/04/21 07:07 POC Glucose 164 mg/dL (70-105) H 06/05/21 12:08 Hemoglobin A1c 12.2 % (4-6) H 06/05/21 07:23 Osmolality 294 Mosm/kg 06/03/21 17:51 Lactic Acid 1.10 mmol/L (0.7-2.0) 06/03/21 17:51 Calcium 8.9 mg/dL (8.4-10.2) 06/04/21 07:07 Magnesium 2.00 mg/dL (1.7-2.3) 06/03/21 17:51 Total Bilirubin < 0.20 mg/dL (0.1-1.2) 06/03/21 17:51 AST 12 units/L (5-40) 06/03/21 17:51 ALT 9 units/L (7-56) 06/03/21 17:51 Alkaline Phosphatase 118 units/L (35-129) 06/03/21 17:51 Total Protein 8.1 g/dL (6.3-8.2) 06/03/21 17:51 Albumin 3.8 g/dL (3.9-5) L 06/03/21 17:51 Albumin/Globulin Ratio 0.9 % 06/03/21 17:51 Lipase 17 units/L (13-60) 06/03/21 17:51 HCG, Qual Negative (Negative) 06/03/21 17:51 Urine Color Yellow (Yellow) 06/03/21 21:02 Urine Turbidity Clear (Clear) 06/03/21 21:02 Urine pH 6.0 (5.0-7.0) 06/03/21 21:02 Ur Specific [place] 1.018 (1.003-1.030) 06/03/21 21:02 Urine Protein 30 mg/dl mg/dL (Negative) 06/03/21 21:02 Urine Glucose (UA) >=500 mg/dL (Negative) 06/03/21 21:02 Urine Ketones Neg mg/dL (Negative) 06/03/21 21:02 Urine Blood Mod (Negative) 06/03/21 21:02 Urine Nitrite Neg (Negative) 06/03/21 21:02 Urine Bilirubin Neg (Negative) 06/03/21 21:02 Urine Urobilinogen < 2.0 mg/dL (<2.0) 06/03/21 21:02 Ur Leukocyte Esterase Neg (Negative) 06/03/21 21:02 Urine WBC (Auto) < 1.0 /HPF (0.0-6.0) 06/03/21 21:02 Urine RBC (Auto) 6.0 /HPF (0.0-6.0) 06/03/21 21:02 U Epithel Cells (Auto) < 1.0 /HPF (0-13.0) 06/03/21 21:02 Microbiology: Microbiology 06/03/21 17:51 Peripheral/Venous Blood Culture - Preliminary NO GROWTH AFTER 24 HOURS 06/03/21 17:51 Peripheral/Venous Blood Culture - Preliminary NO GROWTH AFTER 24 HOURS Matos/IV: Voiding Method Toilet Active Medications - Current Medications Current Medications: Generic Name Dose Route Start Last Admin Trade Name Freq PRN Reason Stop Dose Admin Acetaminophen 650 mg 06/03/21 22:59 Acetaminophen 325 Mg Tab PO Q4H PRN Pain MILD(1-3)/Fever >100.5/OBRIEN Dextrose 0 ml 06/03/21 22:59 Dextrose 50% In Water (25gm) 50 Ml Syringe IV Q30MIN PRN Hypoglycemia Protocol Sodium Chloride 1,000 mls @ 125 mls/hr 06/03/21 23:00 06/05/21 01:18 Nacl 0.9% 1000 Ml IV Infused DIRECT SHERRY Infusion Vancomycin HCl 1,250 mg/ 275 mls @ 166.667 mls/hr 06/04/21 06:00 06/05/21 05:16 Sodium Chloride IV 166.667 mls/hr Q12H SHERRY Administration Cefepime HCl 2 gm in 100 mls @ 200 mls/hr 06/05/21 00:00 06/05/21 09:30 Cefepime/Ns 2 Gm/100 Ml IV 200 mls/hr Q8H SHERRY Administration Protocol Insulin Glargine 15 units 06/05/21 22:00 Insulin Glargine 100 Units/Ml SUB-Q QHS SHERRY Insulin Human Lispro 0 unit 06/04/21 07:30 06/05/21 12:33 Insulin Lispro 100 Unit/Ml SUB-Q 2 unit ACHS SHERRY Administration Protocol Magnesium Hydroxide 30 ml 06/03/21 22:59 Magnesium Hydroxide (Mom) Oral Liqd Udc PO Q4H PRN Constipation Morphine Sulfate 4 mg 06/03/21 22:59 06/05/21 05:25 Morphine 4 Mg/1 Ml Inj IV 4 mg Q4H PRN Administration Pain , Severe (7-10) Morphine Sulfate 2 mg 06/03/21 22:59 06/05/21 01:24 Morphine 2 Mg/1 Ml Inj IV 2 mg Q4H PRN Administration Pain, Moderate (4-6) Ondansetron HCl 4 mg 06/03/21 22:59 06/05/21 01:23 Ondansetron 4 Mg/2 Ml Inj IV 4 mg Q8H PRN Administration Nausea And Vomiting Sodium Chloride 10 ml 06/04/21 10:00 06/05/21 09:30 Sodium Chloride 0.9% 10 Ml Flush Syringe IV 10 ml BID SHERRY Administration Sodium Chloride 10 ml 06/03/21 22:59 Sodium Chloride 0.9% 10 Ml Flush Syringe IV PRN PRN LINE FLUSH Nutrition/Malnutrition Assess - Dietary Evaluation Nutrition/Malnutrition Findings: Nutrition Notes Start: 06/04/21 11:57 Freq: Status: Active Protocol: Document 06/04/21 11:57 (Rec: 06/04/21 11:58 [id number]) Nutrition Notes Need for Assessment generated from: MD Order,Education Initial or Follow up Brief Note Current Diagnosis Diabetes Subjective/Other Information MD order for diet education. Pt denied diet education because she states she is simply trying to eat due to being homeless. Encouraged sugar free options and high protein for when pt does get options. Nutrition Intervention Revisit per MD consult or patient Sign Off request:
[2021-06-05] MEDS: SODIUM CHLORIDE 0.9% 1000 ML 1,000 ML IV SCH (15:34)
[2021-06-05] MEDS: HYDROmorphone 1 MG/1 ML INJ IV PRN (18:38)
[2021-06-05] MEDS: GABAPENTIN 300 MG CAP PO SCH (21:35)
--- NOTE | 2021-06-05 22:04 | Event Note ---
Date: 06/05/21 Right first toe wound is stable. Plan for right first toe amputation on Sunday. Risk, benefits, and alternatives have been explained. The patient has expressed understanding and agrees to proceed and has signed her consent.
[2021-06-05] MEDS: INSULIN GLARGINE 100 UNITS/ML SUB-Q SCH (23:12)
[2021-06-06] MEDS: HYDROmorphone 1 MG/1 ML INJ IV PRN ×5 (02:53→22:54)
[2021-06-06] MEDS: CEFEPIME/NS 2 GM/100 ML 2 GM/100 ML BAG IV SCH ×2 (02:57→09:00)
[2021-06-06] MEDS: MORPHINE 2 MG/1 ML INJ IV PRN (05:10)
[2021-06-06] MEDS: VANCOMYCIN 1,250 MG in SODIUM CHLORIDE 0.9% 250ML 250 ML IV SCH (06:28)
--- NOTE | 2021-06-06 08:38 | Event Note ---
Date: 06/06/21 Pt chart reviewed. Afebrile, stable VS. Patient underwent I&d right great toe abscess POD2. Per vascular notes, patient scheduled for amputation of right great toe on Thursday 06/07. Continue abx, offloading, strict glucose control. No further general surgery intervention. Will defer to vascular surgery
[2021-06-06] MEDS: INSULIN LISPRO 100 UNIT/ML SUB-Q SCH ×4 (08:56→22:50)
[2021-06-06] MEDS: GABAPENTIN 300 MG CAP PO SCH ×2 (09:00→22:49)
--- NOTE | 2021-06-06 11:58 | Progress Note ---
Assessment and Plan Assessment and plan: 35-year-old -[place] female with known history of diabetes mellitus who is currently homeless and has not been on any medication presenting to the emergency room today complaining of hyperglycemia and pain in the right great toe which has been ongoing for the past 2 weeks. Patient was seen at emergency room in [place] on May 18 and was prescribed some clindamycin for 1 week however patient has not been able to take the antibiotics because she claims it was taken away from her. She has been having progressive swelling and pain in the right foot up to the ankle. She denies any fever or chills, no cough, no chest pain or shortness of breath, no nausea vomiting, no abdominal pain, no hematuria or dysuria. She denies any polydipsia polyuria or increased thirst. According to EMS patient's blood glucose was about 343. Work-up in the emergency room today, chemistry reveals sodium of 132, blood glucose was 231. X-ray of the right great toe shows bony irregularity within the distal tuft of the great toe. Soft tissue gas with ulceration is also seen. Findings were concerning for infection of the soft tissue and possible early osteomyelitis. Patient is being admitted with hyperglycemia and diabetic foot ulcer with possible osteomyelitis. 06/04: Discussed with surgeon at bedside mild I&D done at bedside. Appears to be able to palpate the bone. Considering patient's homelessness condition and consideration of clinical osteomyelitis recommendation for possible to amputation is done will await vascular evaluation. Continue current antibiotic coverage Case management/social work program coordinator to assist with social issues in respect to discharge planning. 06/05: Vascular input noted planning for amputation on Sunday. We will continue to adjust pain medication and control. 06/06: Patient seen and examined, still complains of some pain in the I&d right great toe abscess POD2. Per vascular notes, patient scheduled for amputation of right great toe on Thursday 06/07. Will continue to follow, continue offloading and pain control. target worker to see patient for placement purposes. (1) Diabetic foot infection-right Current Visit: Yes Status: Acute Plan to address problem: Radiological exam shows possible osteomyelitis. She has been placed on empiric IV antibiotics. We requested infectious disease evaluation and recommendation. Consult placed to surgery for evaluation. (2) Diabetes mellitus with hyperglycemia Current Visit: Yes Status: Acute (3) mild anemia (4) DVT prophylaxis Current Visit: Yes Status: Acute (5) Full code status Current Visit: Yes Status: Acute History Interval history: Patient seen and examined complains of cramping leg pain 7/10 in intensity otherwise no other issues no fever overnight Hospitalist Physical - Physical exam Narrative exam: VITAL SIGNS: Reviewed. GENERAL: The patient appears normally developed, appears older than stated age vital signs as documented. HEAD: No signs of head trauma. EYES: Pupils are equal. Extraocular motions intact. EARS: Hearing grossly intact. MOUTH: Oropharynx is normal. NECK: No adenopathy, no JVD. CHEST: Chest with clear breath sounds bilaterally. No wheezes, rales, or rhonchi. CARDIAC: Regular rate and rhythm. S1 and S2, without murmurs, gallops, or rubs. VASCULAR: No Edema. Peripheral pulses normal and equal in all extremities. ABDOMEN: Soft, non tender and non distended. No rebound or guarding, and no masses palpated. Bowel Sounds normal. MUSCULOSKELETAL: Good range of motion of all major joints. Extremities without clubbing, cyanosis dressing over the foot and toe. NEUROLOGIC EXAM: Alert and oriented x 3 No focal sensory or strength deficits. Speech normal. Follows commands. PSYCHIATRIC: Mood normal. SKIN: Dressing over the right foot area and large toe. Detail exam as documented in skin assessment - Constitutional Vitals: Temp Pulse Resp BP Pulse Ox 98.5 F 80 20 136/87 100 06/06/21 04:41 06/06/21 04:25 06/06/21 04:41 06/06/21 04:25 06/06/21 04:25 General appearance: Present: no acute distress, well-nourished Results - Labs CBC & Chem 7: 06/05/21 07:23 06/04/21 07:07 Labs: Laboratory Last Values WBC 8.2 K/mm3 (4.5-11.0) 06/05/21 07:23 RBC 2.96 M/mm3 (3.65-5.03) L 06/05/21 07:23 Hgb 9.3 gm/dl (10.1-14.3) L 06/05/21 07:23 Hct 27.4 % (30.3-42.9) L 06/05/21 07:23 MCV 93 fl (79-97) 06/05/21 07:23 MCH 31 pg (28-32) 06/05/21 07:23 MCHC 34 % (30-34) 06/05/21 07:23 RDW 15.1 % (13.2-15.2) 06/05/21 07:23 Plt Count 357 K/mm3 (140-440) 06/05/21 07:23 Lymph % (Auto) 28.5 % (13.4-35.0) 06/04/21 07:07 Leon % (Auto) 9.6 % (0.0-7.3) H 06/04/21 07:07 Eos % (Auto) 1.2 % (0.0-4.3) 06/04/21 07:07 Baso % (Auto) 0.4 % (0.0-1.8) 06/04/21 07:07 Lymph # (Auto) 2.1 K/mm3 (1.2-5.4) 06/04/21 07:07 Leon # (Auto) 0.7 K/mm3 (0.0-0.8) 06/04/21 07:07 Eos # (Auto) 0.1 K/mm3 (0.0-0.4) 06/04/21 07:07 Baso # (Auto) 0.0 K/mm3 (0.0-0.1) 06/04/21 07:07 Add Manual Diff Complete 06/03/21 19:50 Total Counted 100 06/03/21 19:50 Seg Neutrophils % 60.3 % (40.0-70.0) 06/04/21 07:07 Seg Neuts % (Manual) 65.0 % (40.0-70.0) 06/03/21 19:50 Lymphocytes % (Manual) 23.0 % (13.4-35.0) 06/03/21 19:50 Monocytes % (Manual) 10.0 % (0.0-7.3) H 06/03/21 19:50 Eosinophils % (Manual) 1.0 % (0.0-4.3) 06/03/21 19:50 Basophils % (Manual) 1.0 % (0.0-1.8) 06/03/21 19:50 Nucleated RBC % Not Reportable 06/03/21 19:50 Seg Neutrophils # 4.5 K/mm3 (1.8-7.7) 06/04/21 07:07 Seg Neutrophils # Man 6.5 K/mm3 (1.8-7.7) 06/03/21 19:50 Band Neutrophils # 0.0 K/mm3 06/03/21 19:50 Lymphocytes # (Manual) 2.3 K/mm3 (1.2-5.4) 06/03/21 19:50 Abs React Lymphs (Man) 0.0 K/mm3 06/03/21 19:50 Monocytes # (Manual) 1.0 K/mm3 (0.0-0.8) H 06/03/21 19:50 Eosinophils # (Manual) 0.1 K/mm3 (0.0-0.4) 06/03/21 19:50 Basophils # (Manual) 0.1 K/mm3 (0.0-0.1) 06/03/21 19:50 Metamyelocytes # 0.0 K/mm3 06/03/21 19:50 Myelocytes # 0.0 K/mm3 06/03/21 19:50 Promyelocytes # 0.0 K/mm3 06/03/21 19:50 Blast Cells # 0.0 K/mm3 06/03/21 19:50 WBC Morphology Not Reportable 06/03/21 19:50 Hypersegmented Neuts Not Reportable 06/03/21 19:50 Hyposegmented Neuts Not Reportable 06/03/21 19:50 Hypogranular Neuts Not Reportable 06/03/21 19:50 Smudge Cells Not Reportable 06/03/21 19:50 Toxic Granulation Not Reportable 06/03/21 19:50 Toxic Vacuolation Not Reportable 06/03/21 19:50 Dohle Bodies Not Reportable 06/03/21 19:50 Pelger-Huet Anomaly Not Reportable 06/03/21 19:50 Viri Rods Not Reportable 06/03/21 19:50 Platelet Estimate Not Reportable 06/03/21 19:50 Clumped Platelets Not Reportable 06/03/21 19:50 Plt Clumps, EDTA Not Reportable 06/03/21 19:50 Large Platelets Not Reportable 06/03/21 19:50 Giant Platelets Not Reportable 06/03/21 19:50 Platelet Satelliting Not Reportable 06/03/21 19:50 Plt Morphology Comment Not Reportable 06/03/21 19:50 RBC Morphology Not Reportable 06/03/21 19:50 Dimorphic RBCs Not Reportable 06/03/21 19:50 Polychromasia Not Reportable 06/03/21 19:50 Hypochromasia Few 06/03/21 19:50 Poikilocytosis Not Reportable 06/03/21 19:50 Anisocytosis Rare 06/03/21 19:50 Microcytosis Rare 06/03/21 19:50 Macrocytosis Not Reportable 06/03/21 19:50 Spherocytes Not Reportable 06/03/21 19:50 Pappenheimer Bodies Not Reportable 06/03/21 19:50 Sickle Cells Not Reportable 06/03/21 19:50 Target Cells Not Reportable 06/03/21 19:50 Tear Drop Cells Not Reportable 06/03/21 19:50 Ovalocytes Not Reportable 06/03/21 19:50 Helmet Cells Not Reportable 06/03/21 19:50 [place] Bodies Not Reportable 06/03/21 19:50 [place] Rings Not Reportable 06/03/21 19:50 Nat Cells Not Reportable 06/03/21 19:50 Bite Cells Not Reportable 06/03/21 19:50 Crenated Cell Not Reportable 06/03/21 19:50 Elliptocytes Not Reportable 06/03/21 19:50 Acanthocytes (Spur) Not Reportable 06/03/21 19:50 Rouleaux Not Reportable 06/03/21 19:50 Hemoglobin C Crystals Not Reportable 06/03/21 19:50 Schistocytes Not Reportable 06/03/21 19:50 Malaria parasites Not Reportable 06/03/21 19:50 Angel Bodies Not Reportable 06/03/21 19:50 Hem Pathologist Commnt No 06/03/21 19:50 PT 14.5 Sec. (12.2-14.9) 06/04/21 07:07 INR 1.07 (0.87-1.13) 06/04/21 07:07 APTT 32.0 Sec. (24.2-36.6) 06/03/21 17:51 VBG pH 7.415 (7.320-7.420) 06/03/21 17:51 Sodium 136 mmol/L (137-145) L 06/04/21 07:07 Potassium 3.9 mmol/L (3.6-5.0) 06/04/21 07:07 Chloride 100.7 mmol/L (98-107) 06/04/21 07:07 Carbon Dioxide 26 mmol/L (22-30) 06/04/21 07:07 Anion Gap 13 mmol/L 06/04/21 07:07 BUN 5 mg/dL (7-17) L 06/04/21 07:07 Creatinine 0.4 mg/dL (0.6-1.2) L 06/04/21 07:07 Estimated GFR > 60 ml/min 06/04/21 07:07 BUN/Creatinine Ratio 13 % 06/04/21 07:07 Glucose 136 mg/dL (65-100) H 06/04/21 07:07 POC Glucose 196 mg/dL (70-105) H 06/06/21 11:39 Hemoglobin A1c 12.2 % (4-6) H 06/05/21 07:23 Osmolality 294 Mosm/kg 06/03/21 17:51 Lactic Acid 1.10 mmol/L (0.7-2.0) 06/03/21 17:51 Calcium 8.9 mg/dL (8.4-10.2) 06/04/21 07:07 Magnesium 2.00 mg/dL (1.7-2.3) 06/03/21 17:51 Total Bilirubin < 0.20 mg/dL (0.1-1.2) 06/03/21 17:51 AST 12 units/L (5-40) 06/03/21 17:51 ALT 9 units/L (7-56) 06/03/21 17:51 Alkaline Phosphatase 118 units/L (35-129) 06/03/21 17:51 Total Protein 8.1 g/dL (6.3-8.2) 06/03/21 17:51 Albumin 3.8 g/dL (3.9-5) L 06/03/21 17:51 Albumin/Globulin Ratio 0.9 % 06/03/21 17:51 Lipase 17 units/L (13-60) 06/03/21 17:51 HCG, Qual Negative (Negative) 06/03/21 17:51 Urine Color Yellow (Yellow) 06/03/21 21:02 Urine Turbidity Clear (Clear) 06/03/21 21:02 Urine pH 6.0 (5.0-7.0) 06/03/21 21:02 Ur Specific [place] 1.018 (1.003-1.030) 06/03/21 21:02 Urine Protein 30 mg/dl mg/dL (Negative) 06/03/21 21:02 Urine Glucose (UA) >=500 mg/dL (Negative) 06/03/21 21:02 Urine Ketones Neg mg/dL (Negative) 06/03/21 21:02 Urine Blood Mod (Negative) 06/03/21 21:02 Urine Nitrite Neg (Negative) 06/03/21 21:02 Urine Bilirubin Neg (Negative) 06/03/21 21:02 Urine Urobilinogen < 2.0 mg/dL (<2.0) 06/03/21 21:02 Ur Leukocyte Esterase Neg (Negative) 06/03/21 21:02 Urine WBC (Auto) < 1.0 /HPF (0.0-6.0) 06/03/21 21:02 Urine RBC (Auto) 6.0 /HPF (0.0-6.0) 06/03/21 21:02 U Epithel Cells (Auto) < 1.0 /HPF (0-13.0) 06/03/21 21:02 Vancomycin Trough 9.8 ug/mL (5.0-20.0) 06/05/21 16:34 Microbiology: Microbiology 06/03/21 17:51 Peripheral/Venous Blood Culture - Preliminary NO GROWTH AFTER 48 HOURS 06/03/21 17:51 Peripheral/Venous Blood Culture - Preliminary NO GROWTH AFTER 48 HOURS 06/04/21 Unknown Foot - Right Wound Culture - Preliminary Beta Hemolytic Strep Group B Matos/IV: Voiding Method Toilet Active Medications - Current Medications Current Medications: Generic Name Dose Route Start Last Admin Trade Name Freq PRN Reason Stop Dose Admin Acetaminophen 650 mg 06/03/21 22:59 Acetaminophen 325 Mg Tab PO Q4H PRN Pain MILD(1-3)/Fever >100.5/OBRIEN Dextrose 0 ml 06/03/21 22:59 Dextrose 50% In Water (25gm) 50 Ml Syringe IV Q30MIN PRN Hypoglycemia Protocol Gabapentin 300 mg 06/05/21 22:00 06/06/21 09:00 Gabapentin 300 Mg Cap PO 300 mg BID SHERRY Administration Hydromorphone HCl 0.5 mg 06/05/21 12:47 06/06/21 07:40 Hydromorphone 1 Mg/1 Ml Inj IV 0.5 mg Q3H PRN Administration Pain , Severe (7-10) Sodium Chloride 1,000 mls @ 125 mls/hr 06/03/21 23:00 06/05/21 15:34 Nacl 0.9% 1000 Ml IV 125 mls/hr DIRECT SHERRY Administration Cefepime HCl 2 gm in 100 mls @ 200 mls/hr 06/05/21 00:00 06/06/21 09:00 Cefepime/Ns 2 Gm/100 Ml IV 200 mls/hr Q8H SHERRY Administration Protocol Vancomycin HCl 1,500 mg/ 530 mls @ 333.333 mls/hr 06/06/21 18:00 Sodium Chloride IV Q12H SHERRY Insulin Glargine 15 units 06/05/21 22:00 06/05/21 23:12 Insulin Glargine 100 Units/Ml SUB-Q 15 units QHS SHERRY Administration Insulin Human Lispro 0 unit 06/04/21 07:30 06/06/21 08:56 Insulin Lispro 100 Unit/Ml SUB-Q Not Given ACHS [facility] Protocol Magnesium Hydroxide 30 ml 06/03/21 22:59 Magnesium Hydroxide (Mom) Oral Liqd Udc PO Q4H PRN Constipation Morphine Sulfate 2 mg 06/03/21 22:59 06/06/21 05:10 Morphine 2 Mg/1 Ml Inj IV 2 mg Q4H PRN Administration Pain, Moderate (4-6) Ondansetron HCl 4 mg 06/03/21 22:59 06/05/21 01:23 Ondansetron 4 Mg/2 Ml Inj IV 4 mg Q8H PRN Administration Nausea And Vomiting Sodium Chloride 10 ml 06/04/21 10:00 06/05/21 21:37 Sodium Chloride 0.9% 10 Ml Flush Syringe IV 10 ml BID SHERRY Administration Sodium Chloride 10 ml 06/03/21 22:59 Sodium Chloride 0.9% 10 Ml Flush Syringe IV PRN PRN LINE FLUSH Nutrition/Malnutrition Assess - Dietary Evaluation Nutrition/Malnutrition Findings: Nutrition Notes Start: 06/04/21 11:57 Freq: Status: Active Protocol: Document 06/04/21 11:57 MAKENZIE (Rec: 06/04/21 11:58 MK [id number]) Nutrition Notes Need for Assessment generated from: MD Order,Education Initial or Follow up Brief Note Current Diagnosis Diabetes Subjective/Other Information MD order for diet education. Pt denied diet education because she states she is simply trying to eat due to being homeless. Encouraged sugar free options and high protein for when pt does get options. Nutrition Intervention Revisit per MD consult or patient Sign Off request:
--- NOTE | 2021-06-06 12:45 | Progress Note ---
Assessment and Plan 35-year-old female with right first digit abscess status post incision and drainage who requires right first digit amputation. Palpable pedal pulses. Patient should heal. Will need wound care with wound consult and outpatient wound follow-up afterwards. Subjective Date of service: 06/06/21 Interval history: Palpable pedal pulses. Right first digit with packing material in it. No fluctuance or associated erythema. Objective - Constitutional Vitals: Vital Signs - 12hr 06/06/21 06/06/21 04:25 04:41 Temperature 98.5 F Pulse Rate 80 Respiratory 20 Rate Blood Pressure 136/87 O2 Sat by Pulse 100 Oximetry General appearance: Present: no acute distress - EENT Eyes: EOM intact ENT: hearing intact - Respiratory Respiratory effort: normal Extremities: pulses intact, normal temperature, normal color, abnormal (Right first digit toe enlargement with packing material in the plantar aspect of the toe) - Labs CBC & Chem 7: 06/05/21 07:23 06/04/21 07:07 Labs: Abnormal lab results 06/05/21 06/05/21 06/06/21 Range/Units 16:19 22:05 11:39 POC Glucose 139 H 227 H 196 H (70-105) mg/dL Medications & Allergies - Medications Allergies/Adverse Reactions: Allergies No Known Allergies Allergy (Unverified 06/03/21 15:53) Home Medications: Home Medications Medication Instructions Recorded Confirmed Last Taken Type No Known Home Medications [No 06/04/21 06/04/21 Unknown History Reported Home Medications] Active Medications: Generic Name Dose Route Start Last Admin Trade Name Freq PRN Reason Stop Dose Admin Acetaminophen 650 mg 06/03/21 22:59 Acetaminophen 325 Mg Tab PO Q4H PRN Pain MILD(1-3)/Fever >100.5/OBRIEN Dextrose 0 ml 06/03/21 22:59 Dextrose 50% In Water (25gm) 50 Ml Syringe IV Q30MIN PRN Hypoglycemia Protocol Gabapentin 300 mg 06/05/21 22:00 06/06/21 09:00 Gabapentin 300 Mg Cap PO 300 mg BID SHERRY Administration Hydromorphone HCl 0.5 mg 06/05/21 12:47 06/06/21 07:40 Hydromorphone 1 Mg/1 Ml Inj IV 0.5 mg Q3H PRN Administration Pain , Severe (7-10) Sodium Chloride 1,000 mls @ 125 mls/hr 06/03/21 23:00 06/05/21 15:34 Nacl 0.9% 1000 Ml IV 125 mls/hr DIRECT SHERRY Administration Cefepime HCl 2 gm in 100 mls @ 200 mls/hr 06/05/21 00:00 06/06/21 09:00 Cefepime/Ns 2 Gm/100 Ml IV 200 mls/hr Q8H SHERRY Administration Protocol Vancomycin HCl 1,500 mg/ 530 mls @ 333.333 mls/hr 06/06/21 18:00 Sodium Chloride IV Q12H SHERRY Insulin Glargine 15 units 06/05/21 22:00 06/05/21 23:12 Insulin Glargine 100 Units/Ml SUB-Q 15 units QHS SHERRY Administration Insulin Human Lispro 0 unit 06/04/21 07:30 06/06/21 08:56 Insulin Lispro 100 Unit/Ml SUB-Q Not Given ACHS [facility] Protocol Magnesium Hydroxide 30 ml 06/03/21 22:59 Magnesium Hydroxide (Mom) Oral Liqd Udc PO Q4H PRN Constipation Morphine Sulfate 2 mg 06/03/21 22:59 06/06/21 05:10 Morphine 2 Mg/1 Ml Inj IV 2 mg Q4H PRN Administration Pain, Moderate (4-6) Ondansetron HCl 4 mg 06/03/21 22:59 06/05/21 01:23 Ondansetron 4 Mg/2 Ml Inj IV 4 mg Q8H PRN Administration Nausea And Vomiting Sodium Chloride 10 ml 06/04/21 10:00 06/05/21 21:37 Sodium Chloride 0.9% 10 Ml Flush Syringe IV 10 ml BID SHERRY Administration Sodium Chloride 10 ml 06/03/21 22:59 Sodium Chloride 0.9% 10 Ml Flush Syringe IV PRN PRN LINE FLUSH
--- NOTE | 2021-06-06 14:32 | Progress Note ---
Assessment and Plan Cultures: Blood culture no growth 12/05/2020 right foot wound culture: Beta-hemolytic Streptococcus group B Assessment: 35-year-old female with history of diabetes mellitus, homelessness, admitted on 06/03/2021 secondary to right great toe pain for 2 weeks associated with progressive swelling to the left foot and ankle: #Left great toe cellulitis with abscess and osteomyelitis: Underwent bedside I&D. #Diabetes mellitus: Uncontrolled. #Tobacco abuse: Smoking cessation advised Recommendations: -Antibiotics streamlined to IV ceftriaxone -Awaiting toe amputation -Continue glycemic control -Smoking cessation advised Leyla Liang MD, FACP [facility] ([facility] O: [phone] F: [phone] Subjective Date of service: 06/06/21 Interval history: Denies any complaints. Trying to ambulate in the room. Objective - Exam Narrative Exam: Physical Exam: Constitutional: Alert, cooperative. No acute distress Head, Ears, Nose: Normocephalic, atraumatic. External ears, nose normal Eyes: Conjunctivae/corneas clear. No icterus. No ptosis. Neck: Supple, no meningeal signs Cardiovascular: S1, S2 + Respiratory: Good air entry, clear to auscultation bilaterally GI: Soft, non-tender; bowel sounds normal. No peritoneal signs Musculoskeletal: Right foot dressing Skin: No rash or abscess Hem/Lymphatic: No palpable cervical or supraclavicular nodes. No lymphangitis Psych: Mood ok. Affect normal Neurological: Awake, alert, oriented. No gross abnormality - Constitutional Vitals: Vital Signs Temp Pulse Resp BP Pulse Ox 98.5 F 80 20 136/87 100 06/06/21 04:41 06/06/21 04:25 06/06/21 04:41 06/06/21 04:25 06/06/21 04:25 Temperature -Last 24 Hours Temperature 98.5 F Temperature 98.2 F - Labs CBC & Chem 7: 06/05/21 07:23 06/04/21 07:07 Labs: Abnormal lab results 06/05/21 06/05/21 06/06/21 Range/Units 16:19 22:05 11:39 POC Glucose 139 H 227 H 196 H (70-105) mg/dL
[2021-06-06] MEDS: cefTRIAXone/NS 2 GM/100 ML 2 GM/100 ML BAG IV SCH (15:50)
[2021-06-06] MEDS ORDERED: VANCOMYCIN 1,500 MG in SODIUM CHLORIDE 0.9% 500 ML 500 ML IV SCH (18:00)
[2021-06-06] MEDS: INSULIN GLARGINE 100 UNITS/ML SUB-Q SCH (22:49)
[2021-06-07] MEDS: HYDROmorphone 1 MG/1 ML INJ IV PRN ×5 (04:04→19:05)
--- NOTE | 2021-06-07 08:05 | Progress Note ---
Assessment and Plan Assessment and plan: 35-year-old -[place]in[place] female with known history of diabetes mellitus who is currently homeless and has not been on any medication presenting to the emergency room today complaining of hyperglycemia and pain in the right great toe which has been ongoing for the past 2 weeks. Patient was seen at emergency room in [place] on May 18 and was prescribed some clindamycin for 1 week however patient has not been able to take the antibiotics because she claims it was taken away from her. She has been having progressive swelling and pain in the right foot up to the ankle. She denies any fever or chills, no cough, no chest pain or shortness of breath, no nausea vomiting, no abdominal pain, no hematuria or dysuria. She denies any polydipsia polyuria or increased thirst. According to EMS patient's blood glucose was about 343. Work-up in the emergency room today, chemistry reveals sodium of 132, blood glucose was 231. X-ray of the right great toe shows bony irregularity within the distal tuft of the great toe. Soft tissue gas with ulceration is also seen. Findings were concerning for infection of the soft tissue and possible early osteomyelitis. Patient is being admitted with hyperglycemia and diabetic foot ulcer with possible osteomyelitis. 06/04: Discussed with surgeon at bedside mild I&D done at bedside. Appears to be able to palpate the bone. Considering patient's homelessness condition and consideration of clinical osteomyelitis recommendation for possible to amputation is done will await vascular evaluation. Continue current antibiotic coverage Case management/director social service to assist with social issues in respect to discharge planning. 06/05: Vascular input noted planning for amputation on Sunday. We will continue to adjust pain medication and control. 06/06: Patient seen and examined, still complains of some pain in the I&d right great toe abscess POD2. Per vascular notes, patient scheduled for amputation of right great toe on Thursday 06/07. Will continue to follow, continue offloading and pain control. transfer and line up worker to see patient for placement purposes. 06/07; incision and drainage of the right big toe abscess POD 3. Was seen by ID and antibiotics was tailored to IV ceftriaxone. Vascular consulted and will do potation today. Blood glucose is uncontrolled and I have increased Lantus from 15 to 20 units nightly and I added lispro 10 units before meal. Possible discharge tomorrow. (1) Diabetic foot infection-right Current Visit: Yes Status: Acute Plan to address problem: Radiological exam shows possible osteomyelitis. She has been placed on empiric IV antibiotics. We requested infectious disease evaluation and recommendation. Consult placed to surgery for evaluation. (2) Diabetes mellitus with hyperglycemia Current Visit: Yes Status: Acute (3) mild anemia (4) DVT prophylaxis Current Visit: Yes Status: Acute (5) Full code status Current Visit: Yes Status: Acute History Interval history: Patient was seen and evaluated this morning Patient was complaining back pain, she didn't complain pain from her leg. Hospitalist Physical - Physical exam Narrative exam: Not in cardiopulmonary distress. The patient appeared well nourished and normally developed. Vital signs as documented. Head exam is unremarkable. No scleral icterus . Neck is without jugular venous distension, thyromegaly, or carotid bruits. Lungs are clear to auscultation. Cardiac exam reveals regular rate and Rhythm. Abdominal exam reveals normal bowel sounds, nontender, no organomegaly. Extremities right big toe ulcer. SENIOR ACCOUNT DIRECTOR: Alert and oriented 3. No focal weakness. - Constitutional Vitals: Temp Pulse Resp BP Pulse Ox 98.1 F 90 18 137/92 98 06/07/21 04:34 06/07/21 04:34 06/07/21 04:34 06/07/21 04:34 06/07/21 04:34 General appearance: Present: no acute distress Results - Labs CBC & Chem 7: 06/05/21 07:23 06/04/21 07:07 Labs: Laboratory Last Values WBC 8.2 K/mm3 (4.5-11.0) 06/05/21 07:23 RBC 2.96 M/mm3 (3.65-5.03) L 06/05/21 07:23 Hgb 9.3 gm/dl (10.1-14.3) L 06/05/21 07:23 Hct 27.4 % (30.3-42.9) L 06/05/21 07:23 MCV 93 fl (79-97) 06/05/21 07:23 MCH 31 pg (28-32) 06/05/21 07:23 MCHC 34 % (30-34) 06/05/21 07:23 RDW 15.1 % (13.2-15.2) 06/05/21 07:23 Plt Count 357 K/mm3 (140-440) 06/05/21 07:23 Lymph % (Auto) 28.5 % (13.4-35.0) 06/04/21 07:07 Aurora % (Auto) 9.6 % (0.0-7.3) H 06/04/21 07:07 Eos % (Auto) 1.2 % (0.0-4.3) 06/04/21 07:07 Baso % (Auto) 0.4 % (0.0-1.8) 06/04/21 07:07 Lymph # (Auto) 2.1 K/mm3 (1.2-5.4) 06/04/21 07:07 Aurora # (Auto) 0.7 K/mm3 (0.0-0.8) 06/04/21 07:07 Eos # (Auto) 0.1 K/mm3 (0.0-0.4) 06/04/21 07:07 Baso # (Auto) 0.0 K/mm3 (0.0-0.1) 06/04/21 07:07 Add Manual Diff Complete 06/03/21 19:50 Total Counted 100 06/03/21 19:50 Seg Neutrophils % 60.3 % (40.0-70.0) 06/04/21 07:07 Seg Neuts % (Manual) 65.0 % (40.0-70.0) 06/03/21 19:50 Lymphocytes % (Manual) 23.0 % (13.4-35.0) 06/03/21 19:50 Monocytes % (Manual) 10.0 % (0.0-7.3) H 06/03/21 19:50 Eosinophils % (Manual) 1.0 % (0.0-4.3) 06/03/21 19:50 Basophils % (Manual) 1.0 % (0.0-1.8) 06/03/21 19:50 Nucleated RBC % Not Reportable 06/03/21 19:50 Seg Neutrophils # 4.5 K/mm3 (1.8-7.7) 06/04/21 07:07 Seg Neutrophils # Man 6.5 K/mm3 (1.8-7.7) 06/03/21 19:50 Band Neutrophils # 0.0 K/mm3 06/03/21 19:50 Lymphocytes # (Manual) 2.3 K/mm3 (1.2-5.4) 06/03/21 19:50 Abs React Lymphs (Man) 0.0 K/mm3 06/03/21 19:50 Monocytes # (Manual) 1.0 K/mm3 (0.0-0.8) H 06/03/21 19:50 Eosinophils # (Manual) 0.1 K/mm3 (0.0-0.4) 06/03/21 19:50 Basophils # (Manual) 0.1 K/mm3 (0.0-0.1) 06/03/21 19:50 Metamyelocytes # 0.0 K/mm3 06/03/21 19:50 Myelocytes # 0.0 K/mm3 06/03/21 19:50 Promyelocytes # 0.0 K/mm3 06/03/21 19:50 Blast Cells # 0.0 K/mm3 06/03/21 19:50 WBC Morphology Not Reportable 06/03/21 19:50 Hypersegmented Neuts Not Reportable 06/03/21 19:50 Hyposegmented Neuts Not Reportable 06/03/21 19:50 Hypogranular Neuts Not Reportable 06/03/21 19:50 Smudge Cells Not Reportable 06/03/21 19:50 Toxic Granulation Not Reportable 06/03/21 19:50 Toxic Vacuolation Not Reportable 06/03/21 19:50 Dohle Bodies Not Reportable 06/03/21 19:50 Pelger-Huet Anomaly Not Reportable 06/03/21 19:50 Viri Rods Not Reportable 06/03/21 19:50 Platelet Estimate Not Reportable 06/03/21 19:50 Clumped Platelets Not Reportable 06/03/21 19:50 Plt Clumps, EDTA Not Reportable 06/03/21 19:50 Large Platelets Not Reportable 06/03/21 19:50 Giant Platelets Not Reportable 06/03/21 19:50 Platelet Satelliting Not Reportable 06/03/21 19:50 Plt Morphology Comment Not Reportable 06/03/21 19:50 RBC Morphology Not Reportable 06/03/21 19:50 Dimorphic RBCs Not Reportable 06/03/21 19:50 Polychromasia Not Reportable 06/03/21 19:50 Hypochromasia Few 06/03/21 19:50 Poikilocytosis Not Reportable 06/03/21 19:50 Anisocytosis Rare 06/03/21 19:50 Microcytosis Rare 06/03/21 19:50 Macrocytosis Not Reportable 06/03/21 19:50 Spherocytes Not Reportable 06/03/21 19:50 Pappenheimer Bodies Not Reportable 06/03/21 19:50 Sickle Cells Not Reportable 06/03/21 19:50 Target Cells Not Reportable 06/03/21 19:50 Tear Drop Cells Not Reportable 06/03/21 19:50 Ovalocytes Not Reportable 06/03/21 19:50 Helmet Cells Not Reportable 06/03/21 19:50 [place] Bodies Not Reportable 06/03/21 19:50 [place] Rings Not Reportable 06/03/21 19:50 Jefferson Cells Not Reportable 06/03/21 19:50 Bite Cells Not Reportable 06/03/21 19:50 Crenated Cell Not Reportable 06/03/21 19:50 Elliptocytes Not Reportable 06/03/21 19:50 Acanthocytes (Spur) Not Reportable 06/03/21 19:50 Rouleaux Not Reportable 06/03/21 19:50 Hemoglobin C Crystals Not Reportable 06/03/21 19:50 Schistocytes Not Reportable 06/03/21 19:50 Malaria parasites Not Reportable 06/03/21 19:50 Angel Bodies Not Reportable 06/03/21 19:50 Hem Pathologist Commnt No 06/03/21 19:50 PT 14.5 Sec. (12.2-14.9) 06/04/21 07:07 INR 1.07 (0.87-1.13) 06/04/21 07:07 APTT 32.0 Sec. (24.2-36.6) 06/03/21 17:51 VBG pH 7.415 (7.320-7.420) 06/03/21 17:51 Sodium 136 mmol/L (137-145) L 06/04/21 07:07 Potassium 3.9 mmol/L (3.6-5.0) 06/04/21 07:07 Chloride 100.7 mmol/L (98-107) 06/04/21 07:07 Carbon Dioxide 26 mmol/L (22-30) 06/04/21 07:07 Anion Gap 13 mmol/L 06/04/21 07:07 BUN 5 mg/dL (7-17) L 06/04/21 07:07 Creatinine 0.4 mg/dL (0.6-1.2) L 06/04/21 07:07 Estimated GFR > 60 ml/min 06/04/21 07:07 BUN/Creatinine Ratio 13 % 06/04/21 07:07 Glucose 136 mg/dL (65-100) H 06/04/21 07:07 POC Glucose 239 mg/dL (70-105) H 06/07/21 07:22 Hemoglobin A1c 12.2 % (4-6) H 06/05/21 07:23 Osmolality 294 Mosm/kg 06/03/21 17:51 Lactic Acid 1.10 mmol/L (0.7-2.0) 06/03/21 17:51 Calcium 8.9 mg/dL (8.4-10.2) 06/04/21 07:07 Magnesium 2.00 mg/dL (1.7-2.3) 06/03/21 17:51 Total Bilirubin < 0.20 mg/dL (0.1-1.2) 06/03/21 17:51 AST 12 units/L (5-40) 06/03/21 17:51 ALT 9 units/L (7-56) 06/03/21 17:51 Alkaline Phosphatase 118 units/L (35-129) 06/03/21 17:51 Total Protein 8.1 g/dL (6.3-8.2) 06/03/21 17:51 Albumin 3.8 g/dL (3.9-5) L 06/03/21 17:51 Albumin/Globulin Ratio 0.9 % 06/03/21 17:51 Lipase 17 units/L (13-60) 06/03/21 17:51 HCG, Qual Negative (Negative) 06/03/21 17:51 Urine Color Yellow (Yellow) 06/03/21 21:02 Urine Turbidity Clear (Clear) 06/03/21 21:02 Urine pH 6.0 (5.0-7.0) 06/03/21 21:02 Ur Specific Edwards 1.018 (1.003-1.030) 06/03/21 21:02 Urine Protein 30 mg/dl mg/dL (Negative) 06/03/21 21:02 Urine Glucose (UA) >=500 mg/dL (Negative) 06/03/21 21:02 Urine Ketones Neg mg/dL (Negative) 06/03/21 21:02 Urine Blood Mod (Negative) 06/03/21 21:02 Urine Nitrite Neg (Negative) 06/03/21 21:02 Urine Bilirubin Neg (Negative) 06/03/21 21:02 Urine Urobilinogen < 2.0 mg/dL (<2.0) 06/03/21 21:02 Ur Leukocyte Esterase Neg (Negative) 06/03/21 21:02 Urine WBC (Auto) < 1.0 /HPF (0.0-6.0) 06/03/21 21:02 Urine RBC (Auto) 6.0 /HPF (0.0-6.0) 06/03/21 21:02 U Epithel Cells (Auto) < 1.0 /HPF (0-13.0) 06/03/21 21:02 Vancomycin Trough 9.8 ug/mL (5.0-20.0) 06/05/21 16:34 Microbiology: Microbiology 06/03/21 17:51 Peripheral/Venous Blood Culture - Preliminary NO GROWTH AFTER 72 HOURS 06/03/21 17:51 Peripheral/Venous Blood Culture - Preliminary NO GROWTH AFTER 72 HOURS Matos/IV: Voiding Method Toilet Active Medications - Current Medications Current Medications: Generic Name Dose Route Start Last Admin Trade Name Freq PRN Reason Stop Dose Admin Acetaminophen 650 mg 06/03/21 22:59 Acetaminophen 325 Mg Tab PO Q4H PRN Pain MILD(1-3)/Fever >100.5/OBRIEN Dextrose 0 ml 06/03/21 22:59 Dextrose 50% In Water (25gm) 50 Ml Syringe IV Q30MIN PRN Hypoglycemia Protocol Gabapentin 300 mg 06/05/21 22:00 06/06/21 22:49 Gabapentin 300 Mg Cap PO 300 mg BID SHERRY Administration Hydromorphone HCl 0.5 mg 06/05/21 12:47 06/07/21 04:04 Hydromorphone 1 Mg/1 Ml Inj IV 0.5 mg Q3H PRN Administration Pain , Severe (7-10) Sodium Chloride 1,000 mls @ 125 mls/hr 06/03/21 23:00 06/05/21 15:34 Nacl 0.9% 1000 Ml IV 125 mls/hr DIRECT SHERRY Administration Ceftriaxone Sodium 2 gm in 100 mls @ 200 mls/hr 06/06/21 15:00 06/06/21 15:50 Rocephin/Ns 2 Gm/100 Ml IV 200 mls/hr Q24HR SHERRY Administration Protocol Insulin Glargine 20 units 06/07/21 07:58 Insulin Glargine 100 Units/Ml SUB-Q QHS SHERRY Insulin Human Lispro 0 unit 06/04/21 07:30 06/06/21 22:50 Insulin Lispro 100 Unit/Ml SUB-Q 4 unit ACHS SHERRY Administration Protocol Insulin Human Lispro 10 unit 06/07/21 11:30 Insulin Lispro 100 Unit/Ml SUB-Q AC SHERRY Magnesium Hydroxide 30 ml 06/03/21 22:59 Magnesium Hydroxide (Mom) Oral Liqd Udc PO Q4H PRN Constipation Morphine Sulfate 2 mg 06/03/21 22:59 06/06/21 05:10 Morphine 2 Mg/1 Ml Inj IV 2 mg Q4H PRN Administration Pain, Moderate (4-6) Ondansetron HCl 4 mg 06/03/21 22:59 06/05/21 01:23 Ondansetron 4 Mg/2 Ml Inj IV 4 mg Q8H PRN Administration Nausea And Vomiting Sodium Chloride 10 ml 06/04/21 10:00 06/06/21 22:51 Sodium Chloride 0.9% 10 Ml Flush Syringe IV 10 ml BID SHERRY Administration Sodium Chloride 10 ml 06/03/21 22:59 Sodium Chloride 0.9% 10 Ml Flush Syringe IV PRN PRN LINE FLUSH Nutrition/Malnutrition Assess - Dietary Evaluation Nutrition/Malnutrition Findings: Nutrition Notes Start: 06/04/21 11:57 Freq: Status: Active Protocol: Document 06/04/21 11:57 (Rec: 06/04/21 11:58 [id number]) Nutrition Notes Need for Assessment generated from: MD Order,Education Initial or Follow up Brief Note Current Diagnosis Diabetes Subjective/Other Information MD order for diet education. Pt denied diet education because she states she is simply trying to eat due to being homeless. Encouraged sugar free options and high protein for when pt does get options. Nutrition Intervention Revisit per MD consult or patient Sign Off request:
[2021-06-07] MEDS: INSULIN LISPRO 100 UNIT/ML SUB-Q SCH ×7 (08:13→22:21)
[2021-06-07] MEDS ORDERED: BUPIVACAINE/PF (0.5%) 5 MG/1 ML 30 ML VIAL INFILTRATI ONE (08:57)
--- NOTE | 2021-06-07 09:08 | Anesthesia Consultation ---
Anesthesia Consult and Med Hx Date of service: 06/07/21 - Airway Anesthetic Teeth Evaluation: Good ROM Head & Neck: Adequate Mental/Hyoid Distance: Adequate Mallampati Class: Class II Intubation Access Assessment: Probably Good - Pulmonary Exam CTA: Yes - Cardiac Exam Cardiac Exam: RRR - Pre-Operative Health Status ASA Pre-Surgery Classification: ASA2 Proposed Anesthetic Plan: General - Pulmonary Hx Smoking: No Hx Asthma: No Hx Respiratory Symptoms: No SOB: No COPD: No Home Oxygen Therapy: No Hx Pneumonia: No Hx Sleep Apnea: No - Cardiovascular System Hx Hypertension: No Hx Coronary Artery Disease: No Hx Heart Attack/AMI: No Hx Angina: No Hx Percutaneous Transluminal Coronary Angioplasty (PTCA): No Hx Cardia Arrhythmia: No Hx Pacemaker: No Hx Internal Defibrillator: No Hx Valvular Heart Disease: No Hx Heart Murmur: No Hx Peripheral Vascular Disease: No - Central Nervous System Hx Neuromuscular Disorder: No Hx Seizures: No CVA: No Hx Back Pain: No Hx Psychiatric Problems: No - Gastrointestinal Hx Ulcer: No Hx Gastroesophageal Reflux Disease: No - Endocrine Hx Renal Disease: No Hx End Stage Renal Disease: No Hx Cirrhosis: No Hx Liver Disease: No Hx Insulin Dependent Diabetes: Yes Hx Non-Insulin Dependent Diabetes: Yes Hx Thyroid Disease: No Hx Hypothyroidism: No Hx Hyperthyroidism: No - Hematic Hx Anemia: No Hx Sickle Cell Disease: No - Other Systems Hx Alcohol Use: No Hx Substance Use: No Hx Cancer: No Hx Obesity: No - Additional Comments Anesthesia Medical History Comments: Good sensation in operative foot
--- NOTE | 2021-06-07 09:08 | Anesthesia Day of Surgery ---
Anesthesia Day of Surgery - Day of Surgery Patient Examined: Yes Patient H&P Reviewed: Yes Patient is NPO: Yes Beta Blockers: No Cardiac Clearance: No (Not needed) Pulmonary Clearance: No (Not needed)
[2021-06-07] MEDS: GABAPENTIN 300 MG CAP PO SCH ×2 (09:40→22:20)
[2021-06-07] MEDS: cefTRIAXone/NS 2 GM/100 ML 2 GM/100 ML BAG IV SCH (09:41)
[2021-06-07] MEDS ORDERED: ONDANSETRON 4 MG/2 ML INJ ONE (10:30)
[2021-06-07] MEDS ORDERED: propofoL 200 MG/20 ML VIAL IV ONE (10:32)
[2021-06-07] MEDS ORDERED: fentaNYL 100 MCG/2 ML INJ ONE ×2 (10:32→12:47)
[2021-06-07] MEDS ORDERED: LIDOCAINE MPF (2%) 20 MG/1 ML VIAL 5 ML ONE (10:32)
[2021-06-07 12:05] LABS: HCG Qualitative,Urine Negative (Negative)
[2021-06-07] MEDS ORDERED: SODIUM CHLORIDE 0.9% IRR 1,000 ML BOTTLE IR ONE (13:01)
[2021-06-07] MEDS ORDERED: HYDROmorphone 1 MG/1 ML INJ IV PRN (13:30)
--- NOTE | 2021-06-07 13:50 | Post Anesthesia Evaluation ---
- Post Anesthesia Evaluation Patient Participated: Yes Airway Patent: Yes Stable Respiratory Function: Yes Nausea/Vomiting: No Temp > 96.8F: Yes Pain Manageable: Yes Adequeate Hydration: Yes Anesthesia Complications: No Block Receding Appropriately: Not Applicable Patient on Ventilator: No
--- NOTE | 2021-06-07 14:11 | Progress Note ---
Assessment and Plan Cultures: Blood culture no growth 12/05/2020 right foot wound culture: Beta-hemolytic Streptococcus group B Assessment: 35-year-old female with history of diabetes mellitus, homelessness, admitted on 06/03/2021 secondary to right great toe pain for 2 weeks associated with progressive swelling to the left foot and ankle: #Left great toe cellulitis with abscess and osteomyelitis: Underwent bedside I&D, followed by toe amputation. #Diabetes mellitus: Uncontrolled. #Tobacco abuse: Smoking cessation advised Recommendations: -continue IV ceftriaxone while inpatient, upon discharge, PO Keflex 500 mg QID to complete 14 days -Continue glycemic control -Smoking cessation -outpatient wound care Leyla Liang MD, FACP [facility] ([facility] O: [phone] F: [phone] Subjective Date of service: 06/07/21 Interval history: Underwent toe amputation. No fever. Objective - Exam Narrative Exam: Physical Exam: Constitutional: Alert, cooperative. No acute distress Head, Ears, Nose: Normocephalic, atraumatic. External ears, nose normal Eyes: Conjunctivae/corneas clear. No icterus. No ptosis. Neck: Supple, no meningeal signs Cardiovascular: S1, S2 + Respiratory: Good air entry, clear to auscultation bilaterally GI: Soft, non-tender; bowel sounds normal. No peritoneal signs Musculoskeletal: Right foot dressing + Skin: No rash or abscess Hem/Lymphatic: No palpable cervical or supraclavicular nodes. No lymphangitis Psych: Mood ok. Affect normal Neurological: Awake, alert, oriented. No gross abnormality - Constitutional Vitals: Vital Signs Temp Pulse Resp BP Pulse Ox 97.4 F L 89 14 141/102 97 06/07/21 13:13 06/07/21 13:30 06/07/21 13:30 06/07/21 13:30 06/07/21 13:30 Temperature -Last 24 Hours Temperature 97.4 F Temperature 98.1 F - Labs CBC & Chem 7: 06/05/21 07:23 06/04/21 07:07 Labs: Abnormal lab results 06/06/21 06/06/21 06/07/21 Range/Units 16:31 22:18 07:22 POC Glucose 209 H 262 H 239 H (70-105) mg/dL 06/07/21 06/07/21 Range/Units 12:02 13:21 POC Glucose 139 H 149 H (70-105) mg/dL
--- NOTE | 2021-06-07 15:49 | Operative Report ---
Operative Report Operative Report: Date of Procedure: 06/07/2021 Pre-operative Diagnosis: Right 1st Toe Diabetic Ulcer with Osteomyelitis Post-operative Diagnosis: Same Procedure(s): 1. Amputation of Right First Toe Surgeon: Steve Singh M.D. Carpet Inspector: Jovani Anesthesia: General Endotracheal Anesthesia EBL: Minimal Counts: Correct Complications: None Condition: Stable Findings: Remaining tissue with healthy bleeding edges and no obvious infection. Specimen: Right first toe was sent to pathology. Indication: The patient is a 35 year old female with a history of poorly controlled diabetes who presented with a non-healing ulcer on the plantar surface of her right first toe. She was found to have significant drainage from the wound and had an I&D performed that demonstrated that the wound tracked down to the distal phalanx. There were obvious signs of osteomyelitis s she requires right first toe amputation. She was given the risk, benefits, and alternative procedures and consented to the procedure. Description of Procedure: The patient was brought to the operating room and laid in supine position. After timeout was performed general endotracheal anesthesia was achieved. The patient's right foot was then prepped and draped in normal sterile fashion. A circumferential incision was created around the base of the toe right first toe using a 10 blade and then carried down to the proximal phalanx. A bone cutter was then used to transect the proximal phalanx and and a rongeur was used to debride the bone. A rasp was used to smooth the bone and then the wound was copiously irrigated. Cautery was used to achieve hemostasis. Once hemostasis was achieved the wound was closed in 2 layers using a 2-0 Vicryl in interrupted fashion to reapproximate the deep dermal layer and porter to reapproximate the skin. The wound was then dressed with Xeroform gauze, fluffs, a Kerlix roll, and a 4 inch Krishan bandage. The patient tolerated the procedure well. All sponge, needle, and instrument counts were correct. The patient was transported to the recovery area in stable condition.
[2021-06-07] MEDS: MORPHINE 2 MG/1 ML INJ IV PRN ×2 (15:53→22:25)
[2021-06-07] MEDS ORDERED: INSULIN GLARGINE 100 UNITS/ML SUB-Q SCH (22:00)
[2021-06-08] MEDS: HYDROmorphone 1 MG/1 ML INJ IV PRN (02:47)
[2021-06-08 04:32] VITALS: BP 126/79
[2021-06-08] MEDS: MORPHINE 2 MG/1 ML INJ IV PRN ×3 (05:57→13:42)
--- NOTE | 2021-06-08 07:47 | Discharge Summary ---
Providers - Providers Date of Admission: 06/03/21 22:10 Date of discharge: 06/08/21 Attending physician: CINDY FREDERICK MD 06/03/21 18:12 Consult to Physician [CONS] Stat Comment: Consulting Provider: NESSA GUERRERO Physician Instructions: Reason For Exam: diabetic foot infection 06/03/21 22:09 Consult to Physician [CONS] Routine Comment: Consulting Provider: KWAKU SMITH Physician Instructions: Reason For Exam: foot necrosis 06/03/21 22:59 Consult to Dietitian/Nutrition [CONS] Routine Physician Instructions: Reason For Exam: Reason for Consult: Diet education 06/04/21 06:14 Consult to Physician [CONS] Routine Comment: Consulting Provider: SHANE OLIVEIRA Physician Instructions: Reason For Exam: Diabetic foot ulcer with possible osteomyelitis 06/07/21 12:21 Occupational Therapy Evaluate and Treat [CONS] Routine Comment: Reason For Exam: Status post right big toe amputation Physical Therapy Evaluation and Treat [CONS] Routine Comment: Reason For Exam: Status post right toe amputation Primary care physician: TRIMMER HELPER Hospitalization Reason for admission: Right toe osteomyelitis, uncontrolled diabetes mellitus Condition: Stable Procedures: Incision and drainage followed with amputation of the right big toe Hospital course: History of present illness: 35-year-old -Greek female with known history of diabetes mellitus who is currently homeless and has not been on any medication presenting to the emergency room today complaining of hyperglycemia and pain in the right great toe which has been ongoing for the past 2 weeks. Patient was seen at emergency room in [place] on May 18 and was prescribed some clindamycin for 1 week however patient has not been able to take the antibiotics because she claims it was taken away from her. She has been having progressive swelling and pain in the right foot up to the ankle. She denies any fever or chills, no cough, no chest pain or shortness of breath, no nausea vomiting, no abdominal pain, no hematuria or dysuria. She denies any polydipsia polyuria or increased thirst. According to EMS patient's blood glucose was about 343. Work-up in the emergency room today, chemistry reveals sodium of 132, blood glucose was 231. X-ray of the right great toe shows bony irregularity within the distal tuft of the great toe. Soft tissue gas with ulceration is also seen. Findings were concerning for infection of the soft tissue and possible early osteomyelitis. Patient is being admitted with hyperglycemia and diabetic foot ulcer with possible osteomyelitis. Hospital course 06/04: Discussed with surgeon at bedside mild I&D done at bedside. Appears to be able to palpate the bone. Considering patient's homelessness condition and consideration of clinical osteomyelitis recommendation for possible to amputation is done will await vascular evaluation. Continue current antibiotic coverage Case management/child welfare social worker to assist with social issues in respect to discharge planning. 06/05: Vascular input noted planning for amputation on Sunday. We will continue to adjust pain medication and control. 06/06: Patient seen and examined, still complains of some pain in the I&d right great toe abscess POD2. Per vascular notes, patient scheduled for amputation of right great toe on Thursday 06/07. Will continue to follow, continue offloading and pain control. marble worker to see patient for placement purposes. 06/07; incision and drainage of the right big toe abscess POD 3. Was seen by ID and antibiotics was tailored to IV ceftriaxone. Vascular consulted and will do potation today. Blood glucose is uncontrolled and I have increased Lantus from 15 to 20 units nightly and I added lispro 10 units before meal. Possible discharge tomorrow. (1) Diabetic foot infection-right Current Visit: Yes Status: Acute Plan to address problem: Radiological exam shows possible osteomyelitis. She has been placed on empiric IV antibiotics. We requested infectious disease evaluation and recommendation. Consult placed to surgery for evaluation. (2) Diabetes mellitus with hyperglycemia Current Visit: Yes Status: Acute (3) mild anemia (4) DVT prophylaxis Current Visit: Yes Status: Acute (5) Full code status Current Visit: Yes Status: Acute Patient had amputation of right big toe on 06/07/21 by vascular surgeon. Patient tolerated the procedure well. Patient's hemoglobin A1c was 12.2. Patient states she has been homeless and was not taking any diabetic medication for years. I have discussed with case management about her homelessness and financial issues to get medications, and case management/child welfare social worker said they are going to discussed with the patient. Already saw the patient and recommend a week of Keflex. Patient will have wound care follow-up. Patient was discharged with Novolin 70/30 10 units 2 times a day and also is a diabetic supplies was ordered. Patient was given Keflex for 1 week. Patient has diabetic neuropathy and placed on gabapentin. I explained her not to drive after taking gabapentin. Patient was hemodynamically stable at the time of discharge and discharged. Disposition: [id number] TO HOME OR SELFCARE Final Discharge Diagnosis (Prints w/discharge instructions): Right toe osteomyelitis. Uncontrolled diabetes mellitus Time spent for discharge: 35 minutes - Discharge Diagnoses (1) Diabetes mellitus Status: Acute Qualifiers: Diabetes mellitus type: type 2 Diabetes mellitus terminal block assembler insulin use: without alf use Diabetes mellitus complication status: with neurologic complications Diabetes mellitus complication detail: with unspecified neuropathy Qualified Code(s): E11.40 - Type 2 diabetes mellitus with diabetic neuropathy, unspecified (2) Diabetic foot infection Status: Acute (3) Osteomyelitis of great toe of right foot Status: Acute Core Measure Documentation - Palliative Care Palliative Care/ Comfort Measures: Not Applicable - Core Measures Any of the following diagnoses?: none Exam - Physical Exam Narrative exam: Not in cardiopulmonary distress. The patient appeared well nourished and normally developed. Vital signs as documented. Head exam is unremarkable. No scleral icterus . Neck is without jugular venous distension, thyromegaly, or carotid bruits. Lungs are clear to auscultation. Cardiac exam reveals regular rate and Rhythm. Abdominal exam reveals normal bowel sounds, nontender, no organomegaly. Extremities right big toe amputation DAIRY HELPER: Alert and oriented 3. No focal weakness. - Constitutional Vitals: Temp Pulse Resp BP Pulse Ox 98.6 F 96 H 18 126/79 100 06/08/21 04:13 06/08/21 04:13 06/08/21 04:13 06/08/21 04:13 06/08/21 04:13 Plan Activity: no restrictions Weight Bearing Status: Full Weight Bearing Diet: diabetic Additional Instructions: follow at [facility] 2-3 weeks Follow up with: KWAKU SMITH MD [Staff Physician] - 14 Days Prescriptions: A Lipoic Acid/Folic/Mv-Mn/Lut [Diabetes Health Pack] 1 each PO BID #1 combo..pkg Gabapentin 300 mg PO BID #60 capsule cephALEXin [Keflex] 500 mg PO Q6HR #28 capsule Insulin NPH/Regular [Novolin 70/30] 10 unit SQ BIDDIAB #1 ml
[2021-06-08] MEDS: INSULIN LISPRO 100 UNIT/ML SUB-Q SCH ×4 (09:51→12:59)
[2021-06-08] MEDS: GABAPENTIN 300 MG CAP PO SCH (09:52)
[2021-06-08] MEDS: cefTRIAXone/NS 2 GM/100 ML 2 GM/100 ML BAG IV SCH (09:52)
== END 2021-06-08 15:10 | disposition home or self-care (01) | DRG 617 ==
LOC: ED 15:30 → 3A 22:10
PROVIDERS: ADMIT Internal Medicine Geriatric Medicine; ATTEND Internal Medicine
PROC: 0J9Q0ZZ Drainage of Right Foot Subcutaneous Tissue and Fascia, Open Approach (ICD-10-PCS; 2021-06-04)
PROC: 0JBQ0ZZ Excision of Right Foot Subcutaneous Tissue and Fascia, Open Approach (ICD-10-PCS; 2021-06-04)
PROC: 0Y6P0Z0 Detachment at Right 1st Toe, Complete, Open Approach (ICD-10-PCS; principal; 2021-06-07)
DX: E11.69 Type 2 diabetes mellitus with other specified complication (principal); M86.171 Other acute osteomyelitis, right ankle and foot; L02.611 Cutaneous abscess of right foot; E11.621 Type 2 diabetes mellitus with foot ulcer; Z79.4 Long term (current) use of insulin; Z59.0 Homelessness; E11.65 Type 2 diabetes mellitus with hyperglycemia; D64.9 Anemia, unspecified; B95.1 Streptococcus, group B, as the cause of diseases classified elsewhere; L97.519 Non-pressure chronic ulcer of other part of right foot with unspecified severity; L03.031 Cellulitis of right toe; F17.200 Nicotine dependence, unspecified, uncomplicated; Z71.6 Tobacco abuse counseling; E11.40 Type 2 diabetes mellitus with diabetic neuropathy, unspecified
CPT/HCPCS: 36415; 71045; 80048; 80053; 80202; 81001; 81025; 82140; 82805; 82962; 83036; 83690; 83735; 83930; 84703; 85007; 85025; 85027; 85610; 85730; 87040; 87116; 88305; 88311; 96374; G0378; J0692; J0696; J1170; J1815; J2270; J2405; J2543; J2704; J3010; J3370; J7030; J7040; J7050; J7120